=== PATIENT | male | born 1930 | race Caucasian/White ===

== ENCOUNTER 2019-03-18 15:00 | Observation (INO) | payer MEDICARE, BC ==
[2019-03-18] MEDS ORDERED: Acetaminophen 325 MG Tab PO PRN (16:13)
[2019-03-18] MEDS ORDERED: Sodium Chloride 0.9% 10 ML Syringe FLUSH PRN (16:13)
[2019-03-18] MEDS: traMADol 50 MG Tab PO PRN ×2 (16:51→20:50)
[2019-03-18 16:56] LABS: CHLORIDE,CL 89 mEq/L (98-106); SODIUM,NA 125 mEq/L (136-145)
[2019-03-18] MEDS ORDERED: diphenhydrAMINE 25 MG Cap PO PRN (17:11)
[2019-03-18] MEDS ORDERED: Docusate Sodium 100 MG Cap PO PRN (17:11)
[2019-03-18] MEDS ORDERED: Magnesium Hydroxide 400 MG/5 ML Susp 30 ML Cup PO PRN (17:11)
--- NOTE | 2019-03-18 17:22 | EDM.PDOC ---
ED HPI GENERAL MEDICAL PROBLEM - General Chief Complaint: General Stated Complaint: FELL IN SHOWER LAST NIGHT Time Seen by Provider: 03/18/19 15:37 Source of Information: Reports: Patient, Family History Limitations: Reports: No Limitations - History of Present Illness INITIAL COMMENTS - FREE TEXT/NARRATIVE: Hany is an 88 year old male who presents to the ED via private vehicle with his after a fall at home last night. He states that he was walking out of his shower and slipped, falling back. When pt was falling he grabbed onto the shower curtain which then came down on him. Pt hit his chest on the shower curtain wesly and back on the shower stall. His states she witnessed the fall and didn't have any LOC or head involvement. States he does have a bruise to the left posterior chest area and he is sore today with movement. Worse with changing positions. Location: Reports: Chest, Back Left Lower Posterior Chest Pain Score (Numeric/FACES): 6 - Related Data Allergies Allergy/AdvReac Type Severity Reaction Status Date / Time meclofenamate sodium Allergy Cannot Verified 03/18/19 15:19 [From Meclomen] Remember propoxyphene HCl Allergy Cannot Verified 03/18/19 15:19 [From Darvon] Remember valsartan [From Diovan] Allergy Shortness Verified 03/18/19 15:19 of Breath ciprofloxacin AdvReac Nausea and Verified 03/18/19 15:19 Vomiting codeine AdvReac Confusion Verified 03/18/19 15:19 erythromycin base AdvReac Dizziness Verified 03/18/19 15:19 [Erythromycin Base] hydrocodone AdvReac Confusion Verified 03/18/19 15:19 hylan G-F 20 [From Synvisc] AdvReac Muscle Verified 03/18/19 15:19 Aches morphine AdvReac Confusion Verified 03/18/19 15:19 Home Meds: Home Meds Acetaminophen [Tylenol Extra Strength] 500 mg PO ASDIRECTED PRN 11/24/13 [ History] Cholecalciferol (Vitamin D3) [Vitamin D3] 2,000 unit PO DAILY 11/24/13 [History] Docusate Sodium [Colace] 100 mg PO DAILY PRN 11/24/13 [History] Folic Acid 1 mg PO DAILY 11/24/13 [History] Lisinopril 10 mg PO DAILY 11/24/13 [History] Lovastatin 40 mg PO DAILY 11/24/13 [History] Magnesium 250 mg PO DAILY 11/24/13 [History] Magnesium Hydroxide [Milk of Magnesia] 30 ml PO DAILY PRN 11/24/13 [History] Methyldopa 125 mg PO BID 11/24/13 [History] Metoprolol Tartrate 100 mg PO BID 11/24/13 [History] Nitrofurantoin Monohyd/M-Cryst [Macrobid 100 mg Capsule] 100 mg PO BID 11/24/13 [History] Polyethylene Glycol 3350 [MiraLAX] 17 gm PO DAILY 11/24/13 [History] Timolol Maleate [Timoptic 0.5% Ocudose] 1 drop EYEBOTH DAILY 11/24/13 [History] Vitamin E 400 unit PO DAILY 11/24/13 [History] diphenhydrAMINE [Benadryl] 25 mg PO QID PRN 11/24/13 [History] hydrALAZINE HCl [Hydralazine HCl] 50 mg PO TID 11/24/13 [History] hydroCHLOROthiazide [Hydrochlorothiazide] 12.5 mg PO DAILY 11/24/13 [History] Aspirin [Halfprin] 81 mg PO DAILY 09/13/16 [History] Cyanocobalamin (Vitamin B-12) [Vitamin B-12] 2 ml IM ASDIRECTED 10/19/16 [ History] Multivitamin [Multivitamins] 1 tab PO DAILY 10/19/16 [History] cloNIDine [Catapres] 0.2 mg PO BID 10/19/16 [History] Allopurinol [Zyloprim] 100 mg PO DAILY 03/18/19 [History] Insulin Glarg,Human.Rec.Analog [Lantus] 10 unit SUBCUT DAILY 03/18/19 [History] cefUROXime axetil [Cefuroxime] 500 mg PO BID 03/18/19 [History] Past Medical History HEENT History: Reports: Hard of Hearing Cardiovascular History: Reports: High Cholesterol, Hypertension, Pacemaker Respiratory History: Reports: SOB Genitourinary History: Reports: UTI, Recurrent, Other (See Below) Musculoskeletal History: Reports: Arthritis, Gout Endocrine/Metabolic History: Reports: Diabetes, Type II Hematologic History: Reports: Anemia, B12 Deficiency, Other (See Below) Other Hematologic History: vitamin D deficiency - Past Surgical History Male Surgical History: Reports: Suprapubic Catheter Placement Social & Family History - Family History Family Medical History: Noncontributory - Tobacco Use Smoking Status *Q: Never Smoker Second Hand Smoke Exposure: No - Living Situation & Occupation Living situation: Reports: , with Spouse Occupation: Retired ED ROS GENERAL - Review of Systems Review Of Systems: See Below Constitutional: Reports: No Symptoms HEENT: Reports: No Symptoms Respiratory: Reports: Pleuritic Chest Pain. Denies: Shortness of Breath, Cough Cardiovascular: Reports: No Symptoms Musculoskeletal: Reports: Other (rib pain) Skin: Reports: Bruising Neurological: Reports: No Symptoms Psychiatric: Reports: No Symptoms ED EXAM, GENERAL - Physical Exam Exam: See Below Exam Limited By: No Limitations General Appearance: Alert, WD/WN, No Apparent Distress Eye Exam: Bilateral Eye: EOMI, PERRL Ears: Normal Canal, Normal TMs, Hearing Loss Ear Exam: Bilateral Ear: Auricle Normal Nose: Normal Inspection, Normal Mucosa, No Blood Throat/Mouth: Normal Inspection, Normal Lips, Normal Oropharynx, Normal Voice, No Airway Compromise Head: Atraumatic, Normocephalic Neck: Normal Inspection, Supple, Non-Tender, Full Range of Motion. No: Tender Lateral, Tender Midline Respiratory/Chest: No Respiratory Distress, Lungs Clear, Normal Breath Sounds, No Accessory Muscle Use, Other (tenderness with palpation to left posterior ribs ). No: Rhonchi, Wheezing Cardiovascular: Regular Rate, Rhythm, No Murmur GI/Abdominal: Normal Bowel Sounds, Soft, Non-Tender, No Organomegaly, No Abnormal Bruit, Pelvis Stable, Other (obese) Back Exam: No: Muscle Spasm, Paraspinal Tenderness, Vertebral Tenderness Extremities: Normal Inspection, Non-Tender, No Pedal Edema Neurological: Alert, Oriented, Normal Cognition, No Motor/Sensory Deficits Psychiatric: Normal Affect, Normal Mood Skin Exam: Warm, Dry, Ecchymosis (anterior chest wall and left posterior rib cage) Course - Vital Signs Last Recorded V/S: Last Vital Signs Temp 98.2 F 03/18/19 16:13 Pulse 62 03/18/19 16:13 Resp 18 03/18/19 16:13 BP 184/71 H 03/18/19 16:13 Pulse Ox 99 03/18/19 16:13 - Orders/Labs/Meds Orders: Active Orders 24 hr Category Date Time Status Ribs 2V w Chest Lt [CR] Routine Exams 03/18/19 15:22 Taken Medication Orders Acetaminophen (Tylenol) 650 mg PO Q4H PRN PRN Reason: Pain (Mild 1-3)/fever Allopurinol (Zyloprim) 100 mg PO DAILY [facility] Aspirin (Halfprin) 81 mg PO DAILY [facility] Clonidine HCl (Catapres) 0.2 mg PO BID [facility] Docusate Sodium (Colace) 100 mg PO DAILY PRN PRN Reason: Constipation Enoxaparin Sodium (Lovenox) 40 mg SUBCUT Q24H [facility] Folic Acid (Folic Acid) 1 mg PO DAILY [facility] Hydrochlorothiazide (Hydrochlorothiazide) 12.5 mg PO DAILY [facility] Sodium Chloride (Normal Saline) 1,000 mls @ 75 mls/hr IV ASDIRECTED [facility] Lisinopril (Prinivil) 10 mg PO DAILY [facility] Magnesium Hydroxide (Milk Of Magnesia) 30 ml PO DAILY PRN PRN Reason: Constipation Methyldopa (Methyldopa) 125 mg PO BID [facility] Nitrofurantoin Macrocrystals (Macrobid) 100 mg PO BID [facility] Non-Formulary Medication (Diphenhydramine [Benadryl]) 25 mg PO QID PRN PRN Reason: Allergies Non-Formulary Medication (Metoprolol Tartrate) 100 mg PO BID [facility] Non-Formulary Medication (Hydralazine Hcl [Hydralazine Hcl]) 50 mg PO TID [facility] Non-Formulary Medication (Cefuroxime Axetil [Cefuroxime]) 500 mg PO BID [facility] Non-Formulary Medication (Timolol Maleate [Timoptic 0.5% Ocudose]) 1 drop EYEBOTH DAILY [facility] Non-Formulary Medication (Magnesium [Magnesium]) 250 mg PO DAILY [facility] Non-Formulary Medication (Lovastatin [Lovastatin]) 40 mg PO DAILY [facility] Non-Formulary Medication (Insulin Glarg,Human.Rec.Analog [Lantus]) 10 unit SUBCUT DAILY [facility] Polyethylene Glycol (Miralax) 17 gm PO DAILY [facility] Sodium Chloride (Saline Flush) 10 ml FLUSH ASDIRECTED PRN PRN Reason: Keep Vein Open Tramadol HCl (Ultram) 50 mg PO Q4H PRN PRN Reason: pain Last Admin: 03/18/19 16:51 Dose: 50 mg Meds: Medications Generic Name Dose Route Start Last Admin Trade Name Freq PRN Reason Stop Dose Admin Acetaminophen 650 mg 03/18/19 16:13 Tylenol PO Q4H PRN Pain (Mild 1-3)/fever Allopurinol 100 mg 03/19/19 08:00 Zyloprim PO DAILY [facility] Aspirin 81 mg 03/19/19 08:00 Halfprin PO DAILY [facility] Clonidine HCl 0.2 mg 03/18/19 20:00 Catapres PO BID [facility] Docusate Sodium 100 mg 03/18/19 17:11 Colace PO DAILY PRN Constipation Enoxaparin Sodium 40 mg 03/18/19 16:13 Lovenox SUBCUT Q24H [facility] Folic Acid 1 mg 03/19/19 08:00 Folic Acid PO DAILY [facility] Hydrochlorothiazide 12.5 mg 03/19/19 08:00 Hydrochlorothiazide PO DAILY [facility] Sodium Chloride 1,000 mls @ 75 mls/hr 03/18/19 17:30 Normal Saline IV ASDIRECTED [facility] Lisinopril 10 mg 03/19/19 08:00 Prinivil PO DAILY [facility] Magnesium Hydroxide 30 ml 03/18/19 17:11 Milk Of Magnesia PO DAILY PRN Constipation Methyldopa 125 mg 03/18/19 20:00 Methyldopa PO BID [facility] Nitrofurantoin Macrocrystals 100 mg 03/18/19 20:00 Macrobid PO BID [facility] Non-Formulary Medication 25 mg 03/18/19 17:11 Diphenhydramine [Benadryl] PO QID PRN Allergies Non-Formulary Medication 100 mg 03/18/19 20:00 Metoprolol Tartrate PO BID [facility] Non-Formulary Medication 50 mg 03/18/19 20:00 Hydralazine Hcl [Hydralazine Hcl] PO TID [facility] Non-Formulary Medication 500 mg 03/18/19 20:00 Cefuroxime Axetil [Cefuroxime] PO BID [facility] Non-Formulary Medication 1 drop 03/19/19 08:00 Timolol Maleate [Timoptic 0.5% Ocudose] EYEBOTH DAILY [facility] Non-Formulary Medication 250 mg 03/19/19 08:00 Magnesium [Magnesium] PO DAILY [facility] Non-Formulary Medication 40 mg 03/19/19 08:00 Lovastatin [Lovastatin] PO DAILY [facility] Non-Formulary Medication 10 unit 03/19/19 08:00 Insulin Glarg,Human.Rec.Analog [Lantus] SUBCUT DAILY [facility] Polyethylene Glycol 17 gm 03/19/19 08:00 Miralax PO DAILY [facility] Sodium Chloride 10 ml 03/18/19 16:13 Saline Flush FLUSH ASDIRECTED PRN Keep Vein Open Tramadol HCl 50 mg 03/18/19 16:13 03/18/19 16:51 Ultram PO 50 mg Q4H PRN Administration pain Departure - Departure Time of Disposition: 17:23 Disposition: Refer to Observation Clinical Impression: Ribs, multiple fractures Qualifiers: Encounter type: initial encounter Fracture type: closed Laterality: left Qualified Code(s): S22.42XA - Multiple fractures of ribs, left side, initial encounter for closed fracture - Discharge Information - Problem List & Annotations (1) Ribs, multiple fractures SNOMED Code(s): 6002950 Code(s): S22.49XA - MULTIPLE FRACTURES OF RIBS, UNSP SIDE, INIT FOR CLOS FX Status: Acute Current Visit: Yes Qualifiers: Encounter type: initial encounter Fracture type: closed Laterality: left Qualified Code(s): S22.42XA - Multiple fractures of ribs, left side, initial encounter for closed fracture - My Orders Last 24 Hours: My Active Orders 03/18/19 15:22 Ribs 2V w Chest Lt [CR] Routine - Assessment/Plan Admission H&P: Please use this note as an admission H&P Last 24 Hours: My Active Orders 03/18/19 15:22 Ribs 2V w Chest Lt [CR] Routine Plan: X-ray reviewed and nondisplaced fractures 7-9 to the left posterior ribs. Will admit for pain control as he doesn't tolerate narcotics with history of confusion. Will try Tramadol as it doesn't appear he has any discomfort. is concerned of risks for falls and will have him ambulate with assistance. Spirometry ordered. Dr. Dan alerted on admission.
[2019-03-18] MEDS: Enoxaparin 40 MG/0.4 ML Syringe SUBCUT SCH (17:36)
[2019-03-18] MEDS: MACROCRYSTALLINE PO SCH (19:54)
[2019-03-18] MEDS: Cefuroxime 250 MG Tab PO SCH (19:54)
[2019-03-18] MEDS: NITROFURANTOIN MONOHYDRATE PO SCH (19:54)
[2019-03-18] MEDS: CLONIDINE 0.1 MG PO SCH (19:56)
[2019-03-18] MEDS: hydrALAZINE 25 MG Tab PO SCH (19:56)
[2019-03-18] MEDS: Metoprolol Tartrate 50 MG Tab PO SCH (19:56)
[2019-03-18] MEDS: Sodium Chloride 0.9% 1,000 ML IV SCH (20:00)
[2019-03-19] MEDS: traMADol 50 MG Tab PO PRN ×3 (01:29→20:37)
[2019-03-19 07:24] LABS: CHLORIDE,CL 89 mEq/L (98-106)
[2019-03-19 07:39] LABS: SODIUM,NA 123 mEq/L (136-145)
[2019-03-19] MEDS ORDERED: Simvastatin 20 MG Tab PO SCH (08:00)
[2019-03-19] MEDS ORDERED: HYDROCHLOROTHIAZIDE PO SCH (08:00)
[2019-03-19] MEDS ORDERED: Hydrochlorothiazide 25 MG Tab PO SCH (08:00)
[2019-03-19] MEDS ORDERED: Insulin Glargine,Human Rec. Analog 100 Units/ML 3 ML Pen SUBCUT SCH ×2 (08:00→20:00)
[2019-03-19] MEDS ORDERED: Lisinopril 5 MG Tab PO SCH (08:00)
[2019-03-19] MEDS ORDERED: METHYLDOPA PO SCH (08:00)
[2019-03-19] MEDS: FOLIC ACID 1 MG PO SCH (09:02)
[2019-03-19] MEDS: HYDRALAZINE 50 MG PO SCH ×3 (09:02→19:58)
[2019-03-19] MEDS: Cefuroxime 250 MG Tab PO SCH ×2 (09:02→20:01)
[2019-03-19] MEDS: Aspirin 81 MG Tab.EC PO SCH (09:02)
[2019-03-19] MEDS: CLONIDINE 0.1 MG PO SCH ×2 (09:02→19:56)
[2019-03-19] MEDS: LOVASTATIN 40 MG PO SCH (09:03)
[2019-03-19] MEDS: LISINOPRIL 10 MG PO SCH (09:03)
[2019-03-19] MEDS: MACROCRYSTALLINE PO SCH ×2 (09:03→19:55)
[2019-03-19] MEDS: Timolol Maleate 0.5% Ophth Soln 5 ML Bottle EYEBOTH SCH (09:03)
[2019-03-19] MEDS: NITROFURANTOIN MONOHYDRATE PO SCH ×2 (09:03→19:55)
[2019-03-19] MEDS: METOPROLOL TARTRATE 100 MG PO SCH ×2 (09:03→19:57)
[2019-03-19] MEDS: hydrALAZINE 25 MG Tab PO SCH (09:04)
[2019-03-19] MEDS: Metoprolol Tartrate 50 MG Tab PO SCH (09:04)
[2019-03-19] MEDS: Sodium Chloride 0.9% 1,000 ML IV SCH (09:06)
[2019-03-19] MEDS: Polyethylene Glycol 3350 Powder 17 GM Packet PO SCH (09:35)
--- NOTE | 2019-03-19 12:55 | PCM.PN ---
- General Info Date of Service: 03/19/19 Admission Dx/Problem (Free Text): Rib fractures Functional Status: Reports: Pain Controlled (pain is tolerable with use of Tramadol, does admit he has pain with coughing or sneezing), Tolerating Diet, Ambulating - Review of Systems General: Denies: Weakness, Fatigue HEENT: Reports: No Symptoms Pulmonary: Reports: Pleuritic Chest Pain. Denies: Shortness of Breath, Cough Cardiovascular: Denies: Chest Pain, Edema, Lightheadedness Gastrointestinal: Denies: Abdominal Pain, Nausea, Vomiting Genitourinary: Reports: No Symptoms Musculoskeletal: Reports: Back Pain Skin: Reports: Bruising Neurological: Reports: Difficulty Walking (patient states his balance has been off for the last month or so. has fallen x2), Weakness Psychiatric: Reports: No Symptoms - Patient Data Vitals - Most Recent: Last Vital Signs Temp 96.5 F 03/19/19 08:00 Pulse 62 03/19/19 08:00 Resp 18 03/19/19 08:00 BP 142/66 H 03/19/19 09:02 Pulse Ox 95 03/19/19 08:00 Weight - Most Recent: 219 lb I&O - Last 24 Hours: Intake & Output 03/18/19 03/19/19 03/19/19 22:59 06:59 14:59 Intake Total 983 Output Total 1325 Balance -1325 983 Lab Results Last 24 Hours: Laboratory Results - last 24 hr 03/18/19 03/18/19 03/18/19 Range/Units 16:40 16:40 20:51 WBC 10.0 (5.0-10.0) 10^3/uL RBC 3.26 L (4.50-6.00) 10^6/uL Hgb 11.8 L (14.0-18.0) g/dL Hct 32.4 L (40.0-54.0) % MCV 99.4 H (82.0-94.0) fL MCH 36.2 H (27.0-32.0) pg MCHC 36.4 (33.0-38.0) g/dL RDW Coeff of [place] 10.8 L (11.0-15.0) % Plt Count 174 (150-400) 10^3/uL Neut % (Auto) 78.7 (35-85) % Lymph % (Auto) 9.7 L (10-55) % [place] % (Auto) 10.0 (0-16) % Eos % (Auto) 1.5 (0-5) % Baso % (Auto) 0.1 (0-3) % Neut # (Auto) 7.88 H (1.80-7.00) 10^3/uL Lymph # (Auto) 0.97 L (1.00-4.80) 10^3/uL [place] # (Auto) 1.00 H (0.00-0.80) 10^3/uL Eos # (Auto) 0.15 (0.00-0.45) 10^3/uL Baso # (Auto) 0.01 10^3/uL Sodium 125 L (136-145) mEq/L Potassium 4.5 (3.5-5.0) mEq/L Chloride 89 L (98-106) mEq/L Carbon Dioxide 28 (21-32) mmol/L BUN 19 H (7-18) mg/dL Creatinine 1.1 (0.7-1.3) mg/dL Est Cr Clr Drug Dosing 40.38 mL/min Estimated GFR (MDRD) > 60 (>=60) mL/min Glucose 141 H (75-99) mg/dL POC Glucose 201 H (75-105) mg/dl Calcium 9.0 (8.4-10.1) mg/dL Total Bilirubin 1.0 (0.0-1.0) mg/dL AST 21 (15-37) U/L ALT 22 (12-78) U/L Alkaline Phosphatase 88 (46-116) U/L Total Protein 7.1 (6.4-8.2) g/dL Albumin 3.8 (3.4-5.0) g/dL 03/19/19 03/19/19 Range/Units 07:00 12:04 WBC (5.0-10.0) 10^3/uL RBC (4.50-6.00) 10^6/uL Hgb (14.0-18.0) g/dL Hct (40.0-54.0) % MCV (82.0-94.0) fL MCH (27.0-32.0) pg MCHC (33.0-38.0) g/dL RDW Coeff of [place] (11.0-15.0) % Plt Count (150-400) 10^3/uL Neut % (Auto) (35-85) % Lymph % (Auto) (10-55) % [place] % (Auto) (0-16) % Eos % (Auto) (0-5) % Baso % (Auto) (0-3) % Neut # (Auto) (1.80-7.00) 10^3/uL Lymph # (Auto) (1.00-4.80) 10^3/uL [place] # (Auto) (0.00-0.80) 10^3/uL Eos # (Auto) (0.00-0.45) 10^3/uL Baso # (Auto) 10^3/uL Sodium 123 L* (136-145) mEq/L Potassium 4.1 (3.5-5.0) mEq/L Chloride 89 L (98-106) mEq/L Carbon Dioxide 27 (21-32) mmol/L BUN 22 H (7-18) mg/dL Creatinine 0.9 (0.7-1.3) mg/dL Est Cr Clr Drug Dosing 49.35 mL/min Estimated GFR (MDRD) > 60 (>=60) mL/min Glucose 139 H (75-99) mg/dL POC Glucose 135 H (75-105) mg/dl Calcium 8.7 (8.4-10.1) mg/dL Total Bilirubin (0.0-1.0) mg/dL AST (15-37) U/L ALT (12-78) U/L Alkaline Phosphatase (46-116) U/L Total Protein (6.4-8.2) g/dL Albumin (3.4-5.0) g/dL Med Orders - Current: Current Medications Acetaminophen (Tylenol) 650 mg PO Q4H PRN PRN Reason: Pain (Mild 1-3)/fever Allopurinol (Zyloprim) 100 mg PO DAILY [facility] Last Admin: 03/19/19 09:04 Dose: 100 mg Aspirin (Halfprin) 81 mg PO DAILY [facility] Last Admin: 03/19/19 09:02 Dose: 81 mg Cefuroxime Axetil (Ceftin) 500 mg PO BID [facility] Last Admin: 03/19/19 09:02 Dose: 500 mg Clonidine HCl (Catapres) 0.2 mg PO BID [facility] Last Admin: 03/19/19 09:02 Dose: 0.2 mg Diphenhydramine HCl (Benadryl) 25 mg PO QID PRN PRN Reason: Allergies Last Admin: 03/18/19 23:29 Dose: 25 mg Docusate Sodium (Colace) 100 mg PO DAILY PRN PRN Reason: Constipation Enoxaparin Sodium (Lovenox) 40 mg SUBCUT Q24H [facility] Last Admin: 03/18/19 17:36 Dose: 40 mg Folic Acid (Folic Acid) 1 mg PO DAILY [facility] Last Admin: 03/19/19 09:02 Dose: 1 mg Sodium Chloride (Normal Saline) 1,000 mls @ 75 mls/hr IV ASDIRECTED [facility] Last Admin: 03/19/19 09:06 Dose: 75 mls/hr Insulin Glargine (Lantus Solostar) 10 units SUBCUT BEDTIME [facility] Magnesium Hydroxide (Milk Of Magnesia) 30 ml PO DAILY PRN PRN Reason: Constipation Magnesium Oxide (Magnesium Oxide) 250 mg PO DAILY [facility] Last Admin: 03/19/19 09:35 Dose: 250 mg Methyldopa (Methyldopa) 250 mg PO BID [facility] Nitrofurantoin Macrocrystals (Macrobid) 100 mg PO BID [facility] Last Admin: 03/19/19 09:03 Dose: 100 mg Ptom Hydralazine (50mg Tab) 50 mg PO TID [facility] Last Admin: 03/19/19 09:02 Dose: 50 mg Ptom Lisinopril (10mg Tab) 10 mg PO DAILY [facility] Last Admin: 03/19/19 09:03 Dose: 10 mg Ptom Lovastatin (40 Mg Tab) 40 mg PO DAILY [facility] Last Admin: 03/19/19 09:03 Dose: 40 mg Ptom Metoprolol (Tartrate 100mg Tab) 100 mg PO BID [facility] Last Admin: 03/19/19 09:03 Dose: 100 mg Polyethylene Glycol (Miralax) 17 gm PO DAILY [facility] Last Admin: 03/19/19 09:35 Dose: 17 gm Sodium Chloride (Saline Flush) 10 ml FLUSH ASDIRECTED PRN PRN Reason: Keep Vein Open Timolol Maleate (Timoptic 0.5% Ophth Soln) 0 ml EYEBOTH DAILY [facility] Last Admin: 03/19/19 09:03 Dose: 1 drop Tramadol HCl (Ultram) 50 mg PO Q4H PRN PRN Reason: pain Last Admin: 03/19/19 09:07 Dose: 50 mg Discontinued Medications Hydralazine HCl (Apresoline) 50 mg PO TID [facility] Last Admin: 03/19/19 09:04 Dose: Not Given Hydrochlorothiazide (Hydrochlorothiazide) 12.5 mg PO DAILY [facility] Last Admin: 03/19/19 09:04 Dose: Not Given Insulin Glargine (Lantus Solostar) 10 units SUBCUT DAILY [facility] Last Admin: 03/19/19 10:08 Dose: Not Given Lisinopril (Prinivil) 10 mg PO DAILY [facility] Last Admin: 03/19/19 09:05 Dose: Not Given Methyldopa (Methyldopa) 125 mg PO BID [facility] Last Admin: 03/19/19 09:04 Dose: Not Given Metoprolol Tartrate (Lopressor) 100 mg PO BID [facility] Last Admin: 03/19/19 09:04 Dose: Not Given Methyldopa/Hctz 250/ (25mg Tab) 0.5 tab PO BID [facility] Last Admin: 03/19/19 09:03 Dose: 0.5 tab Simvastatin (Zocor) 20 mg PO DAILY [facility] Last Admin: 03/19/19 09:05 Dose: Not Given - Exam General: Alert, Oriented HEENT: Mucous Membr. Moist/[place] Neck: Supple Lungs: Clear to Auscultation, Normal Respiratory Effort Cardiovascular: Regular Rate, Regular Rhythm GI/Abdominal Exam: Normal Bowel Sounds, Soft, Non-Tender Back Exam: Other (is tender with exam to left lateral back and axilla) Extremities: Normal Inspection, No Pedal Edema Skin: Warm, Dry, Ecchymosis Neurological: No New Focal Deficit - Problem List & Annotations (1) Hyponatremia SNOMED Code(s): 75851608 Code(s): E87.1 - HYPO-OSMOLALITY AND HYPONATREMIA Status: Acute Priority : High Current Visit: Yes (2) Ribs, multiple fractures SNOMED Code(s): 2124107 Code(s): S22.49XA - MULTIPLE FRACTURES OF RIBS, UNSP SIDE, INIT FOR CLOS FX Status: Acute Priority: High Current Visit: Yes Qualifiers: Encounter type: initial encounter Fracture type: closed Laterality: left Qualified Code(s): S22.42XA - Multiple fractures of ribs, left side, initial encounter for closed fracture - Problem List Review Problem List Initiated/Reviewed/Updated: Yes - My Orders Last 24 Hours: My Active Orders 03/19/19 20:00 Methyldopa 250 mg PO BID 03/20/19 05:11 BASIC METABOLIC PANEL,BMP [CHEM] AM - Assessment Assessment:: Multiple rib fractures hyponatremia - Plan Plan:: Patient feels he is doing better today. States is tolerating the pain fairly well with Tramadol. Patient and express concerns with any stronger pain meds as he has gotten very confused from them in the past. Is ambulating to the bathroom and tolerating. Labs indicate today that sodium is lower at 123. Historically, patient does have issues with hyponatremia, typically ranges from 128-131. Meds reviewed. Is on HCTZ 25 mg total daily. Will continue with IV normal saline. Tramadol for pain. Stop HCTZ. Repeat BMP in am. Probable discharge home in am.
[2019-03-19] MEDS: Enoxaparin 40 MG/0.4 ML Syringe SUBCUT SCH (17:43)
[2019-03-20] MEDS: FOLIC ACID 1 MG PO SCH (07:58)
[2019-03-20] MEDS: LOVASTATIN 40 MG PO SCH (07:58)
[2019-03-20] MEDS: MACROCRYSTALLINE PO SCH (07:58)
[2019-03-20] MEDS: LISINOPRIL 10 MG PO SCH (07:58)
[2019-03-20] MEDS: NITROFURANTOIN MONOHYDRATE PO SCH (07:58)
[2019-03-20] MEDS: CLONIDINE 0.1 MG PO SCH (07:58)
[2019-03-20] MEDS: Cefuroxime 250 MG Tab PO SCH (07:59)
[2019-03-20] MEDS: METOPROLOL TARTRATE 100 MG PO SCH (07:59)
[2019-03-20] MEDS: HYDRALAZINE 50 MG PO SCH (07:59)
[2019-03-20] MEDS: Polyethylene Glycol 3350 Powder 17 GM Packet PO SCH (08:00)
[2019-03-20] MEDS: Aspirin 81 MG Tab.EC PO SCH (08:07)
[2019-03-20] MEDS: traMADol 50 MG Tab PO PRN (08:13)
[2019-03-20] MEDS: Timolol Maleate 0.5% Ophth Soln 5 ML Bottle EYEBOTH SCH (08:14)
[2019-03-20 08:23] LABS: CHLORIDE,CL 87 mEq/L (98-106)
[2019-03-20 08:27] LABS: SODIUM,NA 124 mEq/L (136-145)
[2019-03-20] MEDS ORDERED: Lisinopril 20 MG Tab PO SCH (08:30)
[2019-03-20] MEDS ORDERED: Lisinopril 10 MG Tab PO ONE (08:34)
[2019-03-20 12:12] VITALS: BP 180/59; PULSE 61
--- NOTE | 2019-03-20 19:25 | PCM.DCSUM1 ---
Discharge Summary - Hospital Course Free Text/Narrative:: Patient presented to ER with complaints of left chest wall pain after a fall. States was getting out of shower and slipped and fell. Grabbed on to the shower curtain but fell, landing on his left side. He complained of pain with movement and deep inspiration. Xrays did show posterior rib fractures. Labs noted sodium level of 125. Admitted and started on IV Normal saline. Started on Tramadol as has had increased confusion related to narcotics. Diagnosis: Stroke: No Modified Adair Scale: No Symptoms at All Modified Adair Scale Score: 0 - Discharge Data Discharge Date: 03/20/19 Discharge Disposition: Home, Self-Care 01 Condition: Fair - Discharge Diagnosis/Problem(s) (1) Hyponatremia SNOMED Code(s): 64405309 ICD Code: E87.1 - HYPO-OSMOLALITY AND HYPONATREMIA Status: Acute Priority : High (2) Ribs, multiple fractures SNOMED Code(s): 1257167 ICD Code: S22.49XA - MULTIPLE FRACTURES OF RIBS, UNSP SIDE, INIT FOR CLOS FX Status: Acute Priority: High Qualifiers: Encounter type: initial encounter Fracture type: closed Laterality: left Qualified Code(s): S22.42XA - Multiple fractures of ribs, left side, initial encounter for closed fracture - Patient Summary/Data Complications: none Hospital Course: Patient stable. Still experiencing pain in the left chest wall with movement and deep breaths. He is tolerating Tramadol well. Did have some confusion last evening but admits that routinely happens at home. Is ambulating with walker and stand by assist. Using incentive spirometer. Sodium level actually dropped yesterday to 123 despite fluids, HCTZ was stopped. As a result of shortage, unable to obtain plain methyldopa so did not receive med last evening. This am, blood pressure is high. Did increase Lisinopril to 20 mg. Will have patient continue to hold methyldopa and HCTZ until upcoming appointment with Lisa and have labs redrawn and blood pressure rechecked at that time. aware, pharmacy notified of med changes. - Patient Instructions Diet: Usual Diet as Tolerated Activity: As Tolerated - Discharge Plan *PRESCRIPTION DRUG MONITORING PROGRAM REVIEWED*: No *COPY OF PRESCRIPTION DRUG MONITORING REPORT IN PATIENT PABLITO: No Prescriptions/Med Rec: Lisinopril [Prinivil] 20 mg PO DAILY #30 tablet traMADol [Ultram] 50 mg PO Q4H PRN #60 tablet PRN Reason: pain Home Medications: Home Meds Acetaminophen [Tylenol Extra Strength] 500 mg PO ASDIRECTED PRN 11/24/13 [ History] Cholecalciferol (Vitamin D3) [Vitamin D3] 2,000 unit PO DAILY 11/24/13 [History] Docusate Sodium [Colace] 100 mg PO DAILY PRN 11/24/13 [History] Folic Acid 1 mg PO DAILY 11/24/13 [History] Lovastatin 40 mg PO DAILY 11/24/13 [History] Magnesium 250 mg PO DAILY 11/24/13 [History] Magnesium Hydroxide [Milk of Magnesia] 30 ml PO DAILY PRN 11/24/13 [History] Metoprolol Tartrate 100 mg PO BID 11/24/13 [History] Nitrofurantoin Monohyd/M-Cryst [Macrobid 100 mg Capsule] 100 mg PO BID 11/24/13 [History] Polyethylene Glycol 3350 [MiraLAX] 17 gm PO DAILY 11/24/13 [History] Timolol Maleate [Timoptic 0.5% Ocudose] 1 drop EYEBOTH DAILY 11/24/13 [History] Vitamin E 400 unit PO DAILY 11/24/13 [History] diphenhydrAMINE [Benadryl] 25 mg PO QID PRN 11/24/13 [History] hydrALAZINE HCl [Hydralazine HCl] 50 mg PO TID 11/24/13 [History] Aspirin [Halfprin] 81 mg PO DAILY 09/13/16 [History] Cyanocobalamin (Vitamin B-12) [Vitamin B-12] 2 ml IM ASDIRECTED 10/19/16 [ History] Multivitamin [Multivitamins] 1 tab PO DAILY 10/19/16 [History] cloNIDine [Catapres] 0.2 mg PO BID 10/19/16 [History] Allopurinol [Zyloprim] 100 mg PO DAILY 03/18/19 [History] Insulin Glarg,Human.Rec.Analog [Lantus] 10 unit SUBCUT DAILY 03/18/19 [History] cefUROXime axetil [Cefuroxime] 500 mg PO BID 03/18/19 [History] Lisinopril [Prinivil] 20 mg PO DAILY #30 tablet 03/20/19 [Rx] traMADol [Ultram] 50 mg PO Q4H PRN #60 tablet 03/20/19 [Rx] Forms: ED Department Discharge Referrals: Lisa Hernandez ENERGY CONSERVATION SPECIALIST [Primary Care Provider] - (Follow up with Lisa in 10 days in NR, panel 8 at that visit) - Discharge Summary/Plan Comment DC Time >30 min.: No - General Info Date of Service: 03/20/19 Admission Dx/Problem (Free Text: Rib fractures Functional Status: Reports: Pain Controlled, Tolerating Diet, Ambulating - Review of Systems General: Reports: Weakness. Denies: Fatigue, Malaise HEENT: Reports: No Symptoms Pulmonary: Reports: Pleuritic Chest Pain. Denies: Shortness of Breath, Cough Cardiovascular: Denies: Chest Pain, Edema, Lightheadedness Gastrointestinal: Denies: Abdominal Pain, Nausea, Vomiting Genitourinary: Reports: No Symptoms Musculoskeletal: Reports: Other (rib pain/back pain) Skin: Reports: Bruising (left posterior back/flank area) Neurological: Denies: Confusion (oriented this am) - Patient Data Vitals - Most Recent: Last Vital Signs Temp 97.6 F 03/20/19 11:50 Pulse 61 03/20/19 11:50 Resp 16 03/20/19 11:50 BP 180/59 H 03/20/19 11:50 Pulse Ox 98 03/20/19 11:50 Weight - Most Recent: 219 lb I&O - Last 24 hours: Intake & Output 03/20/19 03/20/19 03/20/19 06:59 14:59 22:59 Output Total 1125 Balance -1125 Lab Results - Last 24 hrs: Laboratory Results - last 24 hr 03/19/19 03/20/19 03/20/19 Range/Units 20:06 07:00 08:02 Sodium 124 L* (136-145) mEq/L Potassium 4.0 (3.5-5.0) mEq/L Chloride 87 L (98-106) mEq/L Carbon Dioxide 29 (21-32) mmol/L BUN 25 H (7-18) mg/dL Creatinine 0.9 (0.7-1.3) mg/dL Est Cr Clr Drug Dosing 49.35 mL/min Estimated GFR (MDRD) > 60 (>=60) mL/min Glucose 137 H (75-99) mg/dL POC Glucose 194 H 117 H (75-105) mg/dl Calcium 9.6 (8.4-10.1) mg/dL Med Orders - Current: Current Medications Discontinued Medications Acetaminophen (Tylenol) 650 mg PO Q4H PRN PRN Reason: Pain (Mild 1-3)/fever Last Admin: 03/19/19 13:43 Dose: 650 mg Allopurinol (Zyloprim) 100 mg PO DAILY [facility] Last Admin: 03/20/19 07:59 Dose: 100 mg Aspirin (Halfprin) 81 mg PO DAILY [facility] Last Admin: 03/20/19 08:07 Dose: 81 mg Cefuroxime Axetil (Ceftin) 500 mg PO BID [facility] Last Admin: 03/20/19 07:59 Dose: 500 mg Clonidine HCl (Catapres) 0.2 mg PO BID [facility] Last Admin: 03/20/19 07:58 Dose: 0.2 mg Diphenhydramine HCl (Benadryl) 25 mg PO QID PRN PRN Reason: Allergies Last Admin: 03/18/19 23:29 Dose: 25 mg Docusate Sodium (Colace) 100 mg PO DAILY PRN PRN Reason: Constipation Enoxaparin Sodium (Lovenox) 40 mg SUBCUT Q24H [facility] Last Admin: 03/19/19 17:43 Dose: 40 mg Folic Acid (Folic Acid) 1 mg PO DAILY [facility] Last Admin: 03/20/19 07:58 Dose: 1 mg Hydralazine HCl (Apresoline) 50 mg PO TID [facility] Last Admin: 03/19/19 09:04 Dose: Not Given Hydrochlorothiazide (Hydrochlorothiazide) 12.5 mg PO DAILY [facility] Last Admin: 03/19/19 09:04 Dose: Not Given Sodium Chloride (Normal Saline) 1,000 mls @ 75 mls/hr IV ASDIRECTED [facility] Last Admin: 03/19/19 09:06 Dose: 75 mls/hr Insulin Glargine (Lantus Solostar) 10 units SUBCUT DAILY [facility] Last Admin: 03/19/19 10:08 Dose: Not Given Insulin Glargine (Lantus Solostar) 10 units SUBCUT BEDTIME [facility] Last Admin: 03/19/19 20:08 Dose: 10 unit Lisinopril (Prinivil) 10 mg PO DAILY [facility] Last Admin: 03/19/19 09:05 Dose: Not Given Lisinopril (Prinivil) 20 mg PO DAILY [facility] Lisinopril (Prinivil) 20 mg PO DAILY [facility] Lisinopril (Prinivil) 10 mg PO ONETIME ONE Stop: 03/20/19 08:35 Last Admin: 03/20/19 10:31 Dose: 10 mg Magnesium Hydroxide (Milk Of Magnesia) 30 ml PO DAILY PRN PRN Reason: Constipation Magnesium Oxide (Magnesium Oxide) 250 mg PO DAILY [facility] Last Admin: 03/20/19 07:59 Dose: 250 mg Methyldopa (Methyldopa) 125 mg PO BID [facility] Last Admin: 03/19/19 09:04 Dose: Not Given Methyldopa (Methyldopa) 250 mg PO BID [facility] Last Admin: 03/20/19 08:04 Dose: Not Given Metoprolol Tartrate (Lopressor) 100 mg PO BID [facility] Last Admin: 03/19/19 09:04 Dose: Not Given Nitrofurantoin Macrocrystals (Macrobid) 100 mg PO BID [facility] Last Admin: 03/20/19 07:58 Dose: 100 mg Ptom Hydralazine (50mg Tab) 50 mg PO TID [facility] Last Admin: 03/20/19 07:59 Dose: 50 mg Ptom Lisinopril (10mg Tab) 10 mg PO DAILY [facility] Last Admin: 03/20/19 07:58 Dose: 10 mg Ptom Lovastatin (40 Mg Tab) 40 mg PO DAILY [facility] Last Admin: 03/20/19 07:58 Dose: 40 mg Methyldopa/Hctz 250/ (25mg Tab) 0.5 tab PO BID [facility] Last Admin: 03/19/19 09:03 Dose: 0.5 tab Ptom Metoprolol (Tartrate 100mg Tab) 100 mg PO BID [facility] Last Admin: 03/20/19 07:59 Dose: 100 mg Polyethylene Glycol (Miralax) 17 gm PO DAILY [facility] Last Admin: 03/20/19 08:00 Dose: Not Given Simvastatin (Zocor) 20 mg PO DAILY [facility] Last Admin: 03/19/19 09:05 Dose: Not Given Sodium Chloride (Saline Flush) 10 ml FLUSH ASDIRECTED PRN PRN Reason: Keep Vein Open Timolol Maleate (Timoptic 0.5% Ophth Soln) 0 ml EYEBOTH DAILY [facility] Last Admin: 03/20/19 08:14 Dose: 1 drop Tramadol HCl (Ultram) 50 mg PO Q4H PRN PRN Reason: pain Last Admin: 03/20/19 08:13 Dose: 50 mg - Exam General: Reports: Alert, Oriented HEENT: Reports: Mucous Membr. Moist/[place] Neck: Reports: Supple Lungs: Reports: Clear to Auscultation, Normal Respiratory Effort Cardiovascular: Reports: Regular Rate, Regular Rhythm GI/Abdominal Exam: Normal Bowel Sounds, Soft, Non-Tender Extremities: Normal Inspection, No Pedal Edema Skin: Reports: Warm, Dry Neurological: Reports: No New Focal Deficit
[2019-03-21] MEDS ORDERED: Lisinopril 20 MG Tab PO SCH (08:00)
== END 2019-03-20 11:55 | disposition home or self-care (01) ==
LOC: CC.ED 15:00 → CC.MS 15:54 → UNDOADMOB 16:02 → CC.MS 16:02
PROVIDERS: ADMIT Physician Assistant Medical; ATTEND Family Medicine
DX: S22.42XA Multiple fractures of ribs, left side, initial encounter for closed fracture (principal); E87.1 Hypo-osmolality and hyponatremia; E78.00 Pure hypercholesterolemia, unspecified; I10 Essential (primary) hypertension; M19.90 Unspecified osteoarthritis, unspecified site; M10.9 Gout, unspecified; E11.9 Type 2 diabetes mellitus without complications; E55.9 Vitamin D deficiency, unspecified; D64.9 Anemia, unspecified; E53.8 Deficiency of other specified B group vitamins; E66.9 Obesity, unspecified; Z68.36 Body mass index [BMI] 36.0-36.9, adult; W01.0XXA Fall on same level from slipping, tripping and stumbling without subsequent striking against object, initial encounter; Y92.002 Bathroom of unspecified non-institutional (private) residence as the place of occurrence of the external cause; Z95.0 Presence of cardiac pacemaker; Z88.1 Allergy status to other antibiotic agents; Z88.5 Allergy status to narcotic agent; Z88.8 Allergy status to other drugs, medicaments and biological substances; Z79.4 Long term (current) use of insulin; Z79.82 Long term (current) use of aspirin; Z79.899 Other long term (current) drug therapy
CPT/HCPCS: 36415; 71101; 80048; 80053; 82962; 85025; 96360; 96361; 96372; 99284; A9270; G0378; J1650; J1815; J7030; 99217; 99219; 99225

== ENCOUNTER 2019-03-22 06:05 | Emergency (ER) | payer MEDICARE, BC ==
--- NOTE | 2019-03-22 06:42 | EDM.PDOC ---
ED HPI GENERAL MEDICAL PROBLEM - General Chief Complaint: General Stated Complaint: "sweaty and clammy" Time Seen by Provider: 03/22/19 06:20 Source of Information: Reports: Patient, EMS History Limitations: Reports: Other (hard of hearing) - History of Present Illness INITIAL COMMENTS - FREE TEXT/NARRATIVE: in with EMS s/p fall last week with fx ribs, was DC on 03/20/19. 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 Onset: Today Duration: Hour(s): Location: Reports: Abdomen Quality: Reports: Ache Severity: Moderate Improves with: Reports: None Worsens with: Reports: None Associated Symptoms: Reports: Weakness. Denies: Chest Pain, Cough, Fever/Chills , Nausea/Vomiting, Shortness of Breath Treatments BANKING REPRESENTATIVE: Reports: Other (see below) (none) - Related Data Allergies Allergy/AdvReac Type Severity Reaction Status Date / Time meclofenamate sodium Allergy Cannot Verified 03/18/19 15:19 [From Meclomen] Remember propoxyphene HCl Allergy Cannot Verified 03/18/19 15:19 [From Darvon] Remember valsartan [From Diovan] Allergy Shortness Verified 03/18/19 15:19 of Breath ciprofloxacin AdvReac Nausea and Verified 03/18/19 15:19 Vomiting codeine AdvReac Confusion Verified 03/18/19 15:19 erythromycin base AdvReac Dizziness Verified 03/18/19 15:19 [Erythromycin Base] hydrocodone AdvReac Confusion Verified 03/18/19 15:19 hylan G-F 20 [From Synvisc] AdvReac Muscle Verified 03/18/19 15:19 Aches morphine AdvReac Confusion Verified 03/18/19 15:19 Home Meds: Home Meds Acetaminophen [Tylenol Extra Strength] 500 mg PO ASDIRECTED PRN 11/24/13 [ History] Cholecalciferol (Vitamin D3) [Vitamin D3] 2,000 unit PO DAILY 11/24/13 [History] Docusate Sodium [Colace] 100 mg PO DAILY PRN 11/24/13 [History] Folic Acid 1 mg PO DAILY 11/24/13 [History] Lovastatin 40 mg PO DAILY 11/24/13 [History] Magnesium 250 mg PO DAILY 11/24/13 [History] Magnesium Hydroxide [Milk of Magnesia] 30 ml PO DAILY PRN 11/24/13 [History] Metoprolol Tartrate 100 mg PO BID 11/24/13 [History] Nitrofurantoin Monohyd/M-Cryst [Macrobid 100 mg Capsule] 100 mg PO BID 11/24/13 [History] Polyethylene Glycol 3350 [MiraLAX] 17 gm PO DAILY 11/24/13 [History] Timolol Maleate [Timoptic 0.5% Ocudose] 1 drop EYEBOTH DAILY 11/24/13 [History] Vitamin E 400 unit PO DAILY 11/24/13 [History] diphenhydrAMINE [Benadryl] 25 mg PO QID PRN 11/24/13 [History] hydrALAZINE HCl [Hydralazine HCl] 50 mg PO TID 11/24/13 [History] Aspirin [Halfprin] 81 mg PO DAILY 09/13/16 [History] Cyanocobalamin (Vitamin B-12) [Vitamin B-12] 2 ml IM ASDIRECTED 10/19/16 [ History] Multivitamin [Multivitamins] 1 tab PO DAILY 10/19/16 [History] cloNIDine [Catapres] 0.2 mg PO BID 10/19/16 [History] Allopurinol [Zyloprim] 100 mg PO DAILY 03/18/19 [History] Insulin Glarg,Human.Rec.Analog [Lantus] 10 unit SUBCUT DAILY 03/18/19 [History] cefUROXime axetil [Cefuroxime] 500 mg PO BID 03/18/19 [History] Lisinopril [Prinivil] 20 mg PO DAILY #30 tablet 03/20/19 [Rx] traMADol [Ultram] 50 mg PO Q4H PRN #60 tablet 03/20/19 [Rx] Past Medical History HEENT History: Reports: Hard of Hearing Cardiovascular History: Reports: High Cholesterol, Hypertension, Pacemaker Respiratory History: Reports: SOB Genitourinary History: Reports: UTI, Recurrent, Other (See Below) Musculoskeletal History: Reports: Arthritis, Gout Endocrine/Metabolic History: Reports: Diabetes, Type II Hematologic History: Reports: Anemia, B12 Deficiency, Other (See Below) Other Hematologic History: vitamin D deficiency - Past Surgical History Male Surgical History: Reports: Suprapubic Catheter Placement Social & Family History - Family History Family Medical History: Noncontributory - Tobacco Use Smoking Status *Q: Never Smoker - Living Situation & Occupation Living situation: Reports: , with Spouse Occupation: Retired ED ROS GENERAL - Review of Systems Review Of Systems: See Below Constitutional: Reports: Weakness, Other (diaphretic). Denies: Fever HEENT: Reports: No Symptoms Respiratory: Reports: No Symptoms. Denies: Shortness of Breath Cardiovascular: Reports: No Symptoms. Denies: Chest Pain Endocrine: Reports: No Symptoms GI/Abdominal: Reports: No Symptoms, Abdominal Pain. Denies: Black Stool, Bloody Stool, Diarrhea, Melena, Nausea, Vomiting : Reports: No Symptoms Musculoskeletal: Reports: Other (left chest wall pain) Skin: Reports: Bruising (left chest and abd wall) Neurological: Reports: No Symptoms. Denies: Headache Psychiatric: Reports: No Symptoms ED EXAM, GENERAL - Physical Exam Exam: See Below Exam Limited By: No Limitations General Appearance: Alert, WD/WN, No Apparent Distress, Obese Ears: Normal External Exam Nose: Normal Inspection Throat/Mouth: Normal Inspection, Normal Lips Head: Atraumatic, Normocephalic Neck: Normal Inspection, Supple, Non-Tender, Full Range of Motion Respiratory/Chest: No Respiratory Distress, Lungs Clear, Normal Breath Sounds, No Accessory Muscle Use. No: Chest Non-Tender (left chest wall tenderness) Cardiovascular: Normal Peripheral Pulses, Regular Rate, Rhythm Peripheral Pulses: 2+: Radial (L), Radial (R), Dorsalis Pedis (L), Dorsalis Pedis (R) GI/Abdominal: Soft, Distended. No: Tender (Male) Exam: Normal Inspection Rectal (Males) Exam: Normal Rectal Tone, Heme + Stool Back Exam: Normal Inspection, Full Range of Motion Extremities: Normal Inspection, Normal Range of Motion, Non-Tender, Normal Capillary Refill Neurological: Alert, Oriented, Normal Cognition, No Motor/Sensory Deficits Psychiatric: Normal Affect, Normal Mood Skin Exam: Warm, Dry, Intact, Normal Color, Ecchymosis (left chest wall and flank area) Course - Vital Signs Text/Narrative:: the pt was evaluated in the ED, cbc and general chem are essi neg, see pts base line levels, urine does show nitrate +, CT abd and pelvis with IV contrast was performed and read by the radiologist as essi neg, no acute findings other than increased gas in the colon, no obstruction. , there was a possible mass but was present from 2009, see the radiology report for details, the H/H is stable, the stool was brown but was positive for blood. the pt will be dc home will continue treatment plan, will need to f/u with pcp this week for further evaluation and treatment and suggest a colonoscopy. Last Recorded V/S: Last Vital Signs Temp 36.6 C 03/22/19 06:47 Pulse 75 03/22/19 06:47 Resp 16 03/22/19 06:47 BP 224/91 H 03/22/19 06:47 Pulse Ox 94 L 03/22/19 06:47 - Orders/Labs/Meds Orders: Active Orders 24 hr Category Date Time Status Cardiac Monitoring [RC] . DIRECTED Care 03/22/19 06:36 Active Abdomen Pelvis w Cont [CT] Stat Exams 03/22/19 06:33 Taken Chest 1V Frontal [CR] Stat Exams 03/22/19 06:28 Taken CULTURE URINE [RM] Stat Lab 03/22/19 06:36 Received OCCULT BLOOD SCREEN [OP] Stat Lab 03/22/19 06:28 Ordered Sodium Chloride 0.9% [Normal Saline] 1,000 ml Med 03/22/19 06:45 Active IV ASDIRECTED Medication Orders Sodium Chloride (Normal Saline) 1,000 mls @ 100 mls/hr IV ASDIRECTED SANDRA Last Admin: 03/22/19 06:52 Dose: 100 mls/hr Labs: Laboratory Tests 03/22/19 03/22/19 03/22/19 Range/Units 06:28 06:28 06:33 WBC 10.7 H (5.0-10.0) 10^3/uL RBC 2.91 L (4.50-6.00) 10^6/uL Hgb 10.5 L (14.0-18.0) g/dL Hct 29.0 L (40.0-54.0) % MCV 99.7 H (82.0-94.0) fL MCH 36.1 H (27.0-32.0) pg MCHC 36.2 (33.0-38.0) g/dL RDW Coeff of Darwin 11.0 (11.0-15.0) % Plt Count 191 (150-400) 10^3/uL Neut % (Auto) 70.3 (35-85) % Lymph % (Auto) 11.5 (10-55) % Sunflower % (Auto) 15.9 (0-16) % Eos % (Auto) 2.2 (0-5) % Baso % (Auto) 0.1 (0-3) % Neut # (Auto) 7.53 H (1.80-7.00) 10^3/uL Lymph # (Auto) 1.23 (1.00-4.80) 10^3/uL Sunflower # (Auto) 1.70 H (0.00-0.80) 10^3/uL Eos # (Auto) 0.24 (0.00-0.45) 10^3/uL Baso # (Auto) 0.01 10^3/uL PT 10.6 (9.7-12.3) SEC INR 1.03 (0.92-1.18) APTT 28.7 (23.2-32.3) SEC Sodium 126 L (136-145) mEq/L Potassium 3.8 (3.5-5.0) mEq/L Chloride 90 L (98-106) mEq/L Carbon Dioxide 27 (21-32) mmol/L BUN 25 H (7-18) mg/dL Creatinine 1.0 (0.7-1.3) mg/dL Est Cr Clr Drug Dosing 44.42 mL/min Estimated GFR (MDRD) > 60 (>=60) mL/min Glucose 113 H (75-99) mg/dL Lactic Acid (0.4-2.0) mmol/L Calcium 8.8 (8.4-10.1) mg/dL Total Bilirubin 1.4 H (0.0-1.0) mg/dL AST 25 (15-37) U/L ALT 20 (12-78) U/L Alkaline Phosphatase 54 (46-116) U/L Total Protein 6.3 L (6.4-8.2) g/dL Albumin 3.2 L (3.4-5.0) g/dL Urine Color (YELLOW) Urine Appearance (CLEAR) Urine pH (4.5-8.0) Ur Specific Wilsey (1.003-1.020) Urine Protein (NEGATIVE) mg/dL Urine Glucose (UA) (NEGATIVE) mg/dL Urine Ketones (NEGATIVE) mg/dL Urine Occult Blood (NEGATIVE) Urine Nitrite (NEGATIVE) Urine Bilirubin (NEGATIVE) Urine Urobilinogen (0.2-1.0) EU/dL Ur Leukocyte Esterase (NEGATIVE) Urine RBC (0-5) /HPF Urine WBC (0-5) /HPF Urine WBC Clumps (NOT SEEN) /HPF Amorphous Sediment (NOT SEEN) /HPF Urine Bacteria (NOT SEEN) /HPF Urinalysis Comment 03/22/19 03/22/19 Range/Units 06:36 06:37 WBC (5.0-10.0) 10^3/uL RBC (4.50-6.00) 10^6/uL Hgb (14.0-18.0) g/dL Hct (40.0-54.0) % MCV (82.0-94.0) fL MCH (27.0-32.0) pg MCHC (33.0-38.0) g/dL RDW Coeff of Darwin (11.0-15.0) % Plt Count (150-400) 10^3/uL Neut % (Auto) (35-85) % Lymph % (Auto) (10-55) % Sunflower % (Auto) (0-16) % Eos % (Auto) (0-5) % Baso % (Auto) (0-3) % Neut # (Auto) (1.80-7.00) 10^3/uL Lymph # (Auto) (1.00-4.80) 10^3/uL Sunflower # (Auto) (0.00-0.80) 10^3/uL Eos # (Auto) (0.00-0.45) 10^3/uL Baso # (Auto) 10^3/uL PT (9.7-12.3) SEC INR (0.92-1.18) APTT (23.2-32.3) SEC Sodium (136-145) mEq/L Potassium (3.5-5.0) mEq/L Chloride (98-106) mEq/L Carbon Dioxide (21-32) mmol/L BUN (7-18) mg/dL Creatinine (0.7-1.3) mg/dL Est Cr Clr Drug Dosing mL/min Estimated GFR (MDRD) (>=60) mL/min Glucose (75-99) mg/dL Lactic Acid 0.7 (0.4-2.0) mmol/L Calcium (8.4-10.1) mg/dL Total Bilirubin (0.0-1.0) mg/dL AST (15-37) U/L ALT (12-78) U/L Alkaline Phosphatase (46-116) U/L Total Protein (6.4-8.2) g/dL Albumin (3.4-5.0) g/dL Urine Color Yellow (YELLOW) Urine Appearance Clear (CLEAR) Urine pH 7.5 (4.5-8.0) Ur Specific Wilsey 1.020 (1.003-1.020) Urine Protein 100 H (NEGATIVE) mg/dL Urine Glucose (UA) Negative (NEGATIVE) mg/dL Urine Ketones Negative (NEGATIVE) mg/dL Urine Occult Blood Trace-intact H (NEGATIVE) Urine Nitrite Positive H (NEGATIVE) Urine Bilirubin Negative (NEGATIVE) Urine Urobilinogen 0.2 (0.2-1.0) EU/dL Ur Leukocyte Esterase Small H (NEGATIVE) Urine RBC Not seen (0-5) /HPF Urine WBC 5-10 H (0-5) /HPF Urine WBC Clumps Occasional H (NOT SEEN) /HPF Amorphous Sediment Few H (NOT SEEN) /HPF Urine Bacteria Few H (NOT SEEN) /HPF Urinalysis Comment Meds: Medications Generic Name Dose Route Start Last Admin Trade Name Freq PRN Reason Stop Dose Admin Sodium Chloride 1,000 mls @ 100 mls/hr 03/22/19 06:45 03/22/19 06:52 Normal Saline IV 100 mls/hr ASDIRECTED SANDRA Administration Discontinued Medications Generic Name Dose Route Start Last Admin Trade Name Freq PRN Reason Stop Dose Admin Iopamidol 200 ml 03/22/19 07:04 03/22/19 08:02 Isovue-370 (76%) IV 03/22/19 07:05 160 ml ONETIME ONE Administration Departure - Departure Time of Disposition: 09:22 Disposition: Home, Self-Care 01 Condition: Good Clinical Impression: Abdominal pain, Blood in stool - Discharge Information *PRESCRIPTION DRUG MONITORING PROGRAM REVIEWED*: Not Applicable *COPY OF PRESCRIPTION DRUG MONITORING REPORT IN PATIENT PABLITO: Not Applicable Instructions: Abdominal Pain, Adult, [id number] Forms: ED Department Discharge Additional Instructions: follow up with your family doctor this week, call in the morning for an appointment time for further evaluation and possible colonoscopy return to the ER sooner if worse or problems - Problem List & Annotations (1) Abdominal pain SNOMED Code(s): 07567990 Code(s): R10.9 - UNSPECIFIED ABDOMINAL PAIN Status: Acute Priority: High Current Visit: Yes Qualifiers: Abdominal location: generalized Qualified Code(s): R10.84 - Generalized abdominal pain (2) Blood in stool SNOMED Code(s): 453488309 Code(s): K92.1 - MELENA Status: Acute Priority: High Current Visit: Yes - Problem List Review Problem List Initiated/Reviewed/Updated: Yes - My Orders Last 24 Hours: My Active Orders 03/22/19 06:28 Chest 1V Frontal [CR] Stat OCCULT BLOOD SCREEN [OP] Stat 03/22/19 06:33 Abdomen Pelvis w Cont [CT] Stat 03/22/19 06:36 Cardiac Monitoring [RC] . DIRECTED CULTURE URINE [RM] Stat 03/22/19 06:45 Sodium Chloride 0.9% [Normal Saline] 1,000 ml IV ASDIRECTED - Assessment/Plan Last 24 Hours: My Active Orders 03/22/19 06:28 Chest 1V Frontal [CR] Stat OCCULT BLOOD SCREEN [OP] Stat 03/22/19 06:33 Abdomen Pelvis w Cont [CT] Stat 03/22/19 06:36 Cardiac Monitoring [RC] . DIRECTED CULTURE URINE [RM] Stat 03/22/19 06:45 Sodium Chloride 0.9% [Normal Saline] 1,000 ml IV ASDIRECTED Plan: as above
[2019-03-22] MEDS ORDERED: Sodium Chloride 0.9% 1,000 ML IV SCH (06:45)
[2019-03-22 06:48] VITALS: BP 224/91; PULSE 75
[2019-03-22] MEDS ORDERED: Iopamidol 755 Mg/ML 200 ML Bottle IV ONE (07:04)
[2019-03-22 07:29] LABS: CHLORIDE,CL 90 mEq/L (98-106)
[2019-03-22 07:34] LABS: SODIUM,NA 126 mEq/L (136-145)
== END 2019-03-22 10:15 | disposition home or self-care (01) ==
LOC: CC.ED 06:05
DX: K92.1 Melena (principal); R14.1 Gas pain; S20.212A Contusion of left front wall of thorax, initial encounter; S30.1XXA Contusion of abdominal wall, initial encounter; I10 Essential (primary) hypertension; E11.9 Type 2 diabetes mellitus without complications; M19.90 Unspecified osteoarthritis, unspecified site; M10.9 Gout, unspecified; Z88.1 Allergy status to other antibiotic agents; Z88.5 Allergy status to narcotic agent; Z88.8 Allergy status to other drugs, medicaments and biological substances; Z79.4 Long term (current) use of insulin; Z79.82 Long term (current) use of aspirin; Z95.0 Presence of cardiac pacemaker; W18.2XXA Fall in (into) shower or empty bathtub, initial encounter; R10.9 Unspecified abdominal pain
CPT/HCPCS: 36415; 71045; 74177; 80053; 81001; 83605; 85025; 85610; 85730; 87086; 87088; 87186; 93005; 93010; 96360; 96361; 99284; 99285; J7030; Q9967

== ENCOUNTER 2019-03-25 12:35 | Inpatient (IN) | payer MEDICARE, BC ==
[2019-03-25] MEDS ORDERED: Ondansetron 4 MG/2 ML SDV IV PRN (16:15)
[2019-03-25] MEDS ORDERED: Sodium Chloride 0.9% 10 ML Syringe FLUSH PRN (16:15)
[2019-03-25] MEDS ORDERED: Magnesium Hydroxide 400 MG/5 ML Susp 30 ML Cup PO PRN (16:19)
[2019-03-25] MEDS ORDERED: diphenhydrAMINE 25 MG Cap PO PRN (16:19)
[2019-03-25] MEDS: Acetaminophen 325 MG Tab PO PRN ×2 (16:48→23:50)
[2019-03-25] MEDS: cefTAZidime 1 GM Vial IVPUSH SCH (16:50)
[2019-03-25] MEDS: Enoxaparin 30 MG/0.3 ML Syringe SUBCUT SCH (16:54)
[2019-03-25] MEDS: Metoprolol Tartrate 50 MG Tab PO SCH (19:26)
[2019-03-25] MEDS: hydrALAZINE 25 MG Tab PO SCH (19:27)
[2019-03-25] MEDS: cloNIDine 0.1 MG Tab PO SCH (19:27)
[2019-03-25] MEDS: Insulin Glargine,Human Rec. Analog 100 Units/ML 3 ML Pen SUBCUT SCH (19:28)
[2019-03-25] MEDS: Docusate Sodium 100 MG Cap PO PRN (23:50)
[2019-03-26] MEDS: Acetaminophen 325 MG Tab PO PRN ×3 (07:43→20:07)
[2019-03-26] MEDS: hydrALAZINE 25 MG Tab PO SCH ×3 (07:43→20:06)
[2019-03-26] MEDS: Allopurinol 100 MG Tab PO SCH (07:43)
[2019-03-26] MEDS: Metoprolol Tartrate 50 MG Tab PO SCH ×2 (07:44→20:07)
[2019-03-26] MEDS: Lisinopril 20 MG Tab PO SCH (07:44)
[2019-03-26] MEDS: Docusate Sodium 100 MG Cap PO PRN (07:44)
[2019-03-26] MEDS: Folic Acid 1 MG Tab PO SCH (07:44)
[2019-03-26] MEDS: Aspirin 81 MG Tab.EC PO SCH (07:44)
[2019-03-26] MEDS: cloNIDine 0.1 MG Tab PO SCH ×2 (07:44→20:06)
[2019-03-26] MEDS: Simvastatin 20 MG Tab PO SCH (07:44)
[2019-03-26] MEDS: cefTAZidime 1 GM Vial IVPUSH SCH ×2 (07:45→20:06)
[2019-03-26] MEDS: Polyethylene Glycol 3350 Powder 17 GM Packet PO SCH (07:45)
[2019-03-26 08:11] LABS: CHLORIDE,CL 95 mEq/L (98-106); SODIUM,NA 131 mEq/L (136-145)
--- NOTE | 2019-03-26 14:13 | PCM.PN ---
- General Info Date of Service: 03/26/19 Admission Dx/Problem (Free Text): UTI Weakness Multiple Rib Fractures Subjective Update: Hany is a 88 year old male who was admitted to the hospital 03/25/2019 for UTI. Had been seen in the ED prior on two occasions and urine culture came back positive. Unable to be treated with oral antibiotics due to resistance, so was admitted for IV antibiotics. He has been more weak than usual and had been having multiple falls at home, most recent which resulted in left rib fractures 7-9. has been struggling to care for him at home following rib fractures as patient was having significant pain. Sodium has also consistently been low. Most recently his hydrochlorothiazide has been discontinued. He reports his pain seems to be well controlled. Denies pain at rest, but reports he'll get episodes where pain is more significant. Pain increases with any movement. Has been tolerating general diet. Continues to have generalized weakness. Does require assist of 1 and FWW with activity. Has been afebrile since admit. Labs are improving. Functional Status: Reports: Pain Controlled, Tolerating Diet, Ambulating, Urinating. Denies: New Symptoms - Review of Systems General: Reports: Weakness, Fatigue, Chills. Denies: Fever Pulmonary: Reports: No Symptoms. Denies: Shortness of Breath, Cough Cardiovascular: Reports: No Symptoms. Denies: Chest Pain, Dyspnea on Exertion, Edema, Lightheadedness Gastrointestinal: Reports: No Symptoms. Denies: Abdominal Pain, Decreased Appetite, Diarrhea, Nausea, Vomiting Genitourinary: Reports: Other (suprapubic catheter) Musculoskeletal: Reports: Other (left sided rib pain) Skin: Reports: No Symptoms Neurological: Reports: Confusion (at baseline), Weakness. Denies: Dizziness, Numbness, Syncope, Tingling Psychiatric: Reports: Anxiety - Patient Data Vitals - Most Recent: Last Vital Signs Temp 97.6 F 03/26/19 11:25 Pulse 60 03/26/19 11:25 Resp 18 03/26/19 11:25 BP 123/105 H 03/26/19 13:42 Pulse Ox 97 03/26/19 11:25 Weight - Most Recent: 216 lb 6.4 oz I&O - Last 24 Hours: Intake & Output 03/25/19 03/26/19 03/26/19 22:59 06:59 14:59 Output Total 500 Balance -500 Lab Results Last 24 Hours: Laboratory Results - last 24 hr 03/25/19 03/25/19 03/25/19 Range/Units 16:15 16:15 17:11 WBC 11.3 H (5.0-10.0) 10^3/uL RBC 2.94 L (4.50-6.00) 10^6/uL Hgb 10.7 L (14.0-18.0) g/dL Hct 30.5 L (40.0-54.0) % MCV 103.7 H (82.0-94.0) fL MCH 36.4 H (27.0-32.0) pg MCHC 35.1 (33.0-38.0) g/dL RDW Coeff of Darwin 11.8 (11.0-15.0) % Plt Count 239 (150-400) 10^3/uL Neut % (Auto) 72.6 (35-85) % Lymph % (Auto) 12.1 (10-55) % [place] % (Auto) 13.2 (0-16) % Eos % (Auto) 1.9 (0-5) % Baso % (Auto) 0.2 (0-3) % Neut # (Auto) 8.23 H (1.80-7.00) 10^3/uL Lymph # (Auto) 1.37 (1.00-4.80) 10^3/uL [place] # (Auto) 1.49 H (0.00-0.80) 10^3/uL Eos # (Auto) 0.22 (0.00-0.45) 10^3/uL Baso # (Auto) 0.02 10^3/uL Sodium 131 L (136-145) mEq/L Potassium 4.4 (3.5-5.0) mEq/L Chloride 94 L (98-106) mEq/L Carbon Dioxide 29 (21-32) mmol/L BUN 29 H (7-18) mg/dL Creatinine 1.2 (0.7-1.3) mg/dL Est Cr Clr Drug Dosing 35.63 mL/min Estimated GFR (MDRD) 57 L (>=60) mL/min Glucose 110 H (75-99) mg/dL POC Glucose 112 H (75-105) mg/dl Calcium 9.2 (8.4-10.1) mg/dL C-Reactive Protein 3.4 H (0.2-0.8) mg/dL 03/25/19 03/26/19 03/26/19 Range/Units 19:18 07:39 07:39 WBC 9.2 (5.0-10.0) 10^3/uL RBC 2.91 L (4.50-6.00) 10^6/uL Hgb 10.6 L (14.0-18.0) g/dL Hct 29.9 L (40.0-54.0) % MCV 102.7 H (82.0-94.0) fL MCH 36.4 H (27.0-32.0) pg MCHC 35.5 (33.0-38.0) g/dL RDW Coeff of Darwin 11.4 (11.0-15.0) % Plt Count 236 (150-400) 10^3/uL Neut % (Auto) 72.7 (35-85) % Lymph % (Auto) 11.7 (10-55) % [place] % (Auto) 13.6 (0-16) % Eos % (Auto) 1.8 (0-5) % Baso % (Auto) 0.2 (0-3) % Neut # (Auto) 6.71 (1.80-7.00) 10^3/uL Lymph # (Auto) 1.08 (1.00-4.80) 10^3/uL [place] # (Auto) 1.26 H (0.00-0.80) 10^3/uL Eos # (Auto) 0.17 (0.00-0.45) 10^3/uL Baso # (Auto) 0.02 10^3/uL Sodium 131 L (136-145) mEq/L Potassium 4.9 (3.5-5.0) mEq/L Chloride 95 L (98-106) mEq/L Carbon Dioxide 29 (21-32) mmol/L BUN 25 H (7-18) mg/dL Creatinine 1.1 (0.7-1.3) mg/dL Est Cr Clr Drug Dosing 38.87 mL/min Estimated GFR (MDRD) > 60 (>=60) mL/min Glucose 113 H (75-99) mg/dL POC Glucose 170 H (75-105) mg/dl Calcium 8.9 (8.4-10.1) mg/dL C-Reactive Protein 3.7 H (0.2-0.8) mg/dL 03/26/19 03/26/19 Range/Units 07:39 11:24 WBC (5.0-10.0) 10^3/uL RBC (4.50-6.00) 10^6/uL Hgb (14.0-18.0) g/dL Hct (40.0-54.0) % MCV (82.0-94.0) fL MCH (27.0-32.0) pg MCHC (33.0-38.0) g/dL RDW Coeff of Darwin (11.0-15.0) % Plt Count (150-400) 10^3/uL Neut % (Auto) (35-85) % Lymph % (Auto) (10-55) % [place] % (Auto) (0-16) % Eos % (Auto) (0-5) % Baso % (Auto) (0-3) % Neut # (Auto) (1.80-7.00) 10^3/uL Lymph # (Auto) (1.00-4.80) 10^3/uL [place] # (Auto) (0.00-0.80) 10^3/uL Eos # (Auto) (0.00-0.45) 10^3/uL Baso # (Auto) 10^3/uL Sodium (136-145) mEq/L Potassium (3.5-5.0) mEq/L Chloride (98-106) mEq/L Carbon Dioxide (21-32) mmol/L BUN (7-18) mg/dL Creatinine (0.7-1.3) mg/dL Est Cr Clr Drug Dosing mL/min Estimated GFR (MDRD) (>=60) mL/min Glucose (75-99) mg/dL POC Glucose 114 H 147 H (75-105) mg/dl Calcium (8.4-10.1) mg/dL C-Reactive Protein (0.2-0.8) mg/dL Med Orders - Current: Current Medications Acetaminophen (Tylenol) 650 mg PO Q4H PRN PRN Reason: Pain (Mild 1-3)/fever Last Admin: 03/26/19 13:41 Dose: 650 mg Allopurinol (Zyloprim) 100 mg PO DAILY [facility] Last Admin: 03/26/19 07:43 Dose: 100 mg Aspirin (Halfprin) 81 mg PO DAILY [facility] Last Admin: 03/26/19 07:44 Dose: 81 mg Ceftazidime (Fortaz) 1 gm IVPUSH BID [facility] Last Admin: 03/26/19 07:45 Dose: 1 gm Clonidine HCl (Catapres) 0.2 mg PO BID [facility] Last Admin: 03/26/19 07:44 Dose: 0.2 mg Diphenhydramine HCl (Benadryl) 25 mg PO QID PRN PRN Reason: Allergies Docusate Sodium (Colace) 100 mg PO BID PRN PRN Reason: Constipation Last Admin: 03/25/19 23:50 Dose: 100 mg Enoxaparin Sodium (Lovenox) 30 mg SUBCUT DAILY@1600 [facility] Last Admin: 03/25/19 16:54 Dose: 30 mg Folic Acid (Folic Acid) 1 mg PO DAILY [facility] Last Admin: 03/26/19 07:44 Dose: 1 mg Hydralazine HCl (Apresoline) 50 mg PO TID [facility] Last Admin: 03/26/19 13:42 Dose: 50 mg Insulin Glargine (Lantus Solostar) 10 units SUBCUT BEDTIME [facility] Last Admin: 03/25/19 19:28 Dose: 10 units Lisinopril (Prinivil) 20 mg PO DAILY [facility] Last Admin: 03/26/19 07:44 Dose: 20 mg Magnesium Hydroxide (Milk Of Magnesia) 30 ml PO DAILY PRN PRN Reason: Constipation Magnesium Oxide (Magnesium Oxide) 250 mg PO DAILY [facility] Last Admin: 03/26/19 07:44 Dose: 250 mg Metoprolol Tartrate (Lopressor) 100 mg PO BID [facility] Last Admin: 03/26/19 07:44 Dose: 100 mg Ondansetron HCl (Zofran) 4 mg IV Q4H PRN PRN Reason: Nausea/Vomiting Polyethylene Glycol (Miralax) 17 gm PO DAILY [facility] Last Admin: 03/26/19 07:45 Dose: 17 gm Simvastatin (Zocor) 40 mg PO DAILY [facility] Last Admin: 03/26/19 07:44 Dose: 40 mg Sodium Chloride (Saline Flush) 10 ml FLUSH ASDIRECTED PRN PRN Reason: Keep Vein Open - Exam Quality Assessment: Urine Catheter (chronic suprapubic) General: Alert, Oriented, No Acute Distress Neck: Supple Lungs: Clear to Auscultation, Normal Respiratory Effort Cardiovascular: Regular Rate, Regular Rhythm GI/Abdominal Exam: Normal Bowel Sounds, Soft, Non-Tender, No Organomegaly, No Distention, No Abnormal Bruit, No Mass, Pelvis Stable, Other (suprapubic catheter) Back Exam: Normal Inspection, Full Range of Motion. No: CVA Tenderness (L), CVA Tenderness (R) Extremities: Normal Inspection, Normal Range of Motion, Non-Tender, No Pedal Edema, Normal Capillary Refill Neurological: No New Focal Deficit Psy/Mental Status: Anxious - Problem List & Annotations (1) Chronic urinary tract infection SNOMED Code(s): 814307464 Code(s): N39.0 - URINARY TRACT INFECTION, SITE NOT SPECIFIED Status: Acute Priority: High (2) Hyponatremia SNOMED Code(s): 53530825 Code(s): E87.1 - HYPO-OSMOLALITY AND HYPONATREMIA Status: Acute Priority : High (3) Ribs, multiple fractures SNOMED Code(s): 9023510 Code(s): S22.49XA - MULTIPLE FRACTURES OF RIBS, UNSP SIDE, INIT FOR CLOS FX Status: Acute Priority: High Qualifiers: Encounter type: initial encounter Fracture type: closed Laterality: left Qualified Code(s): S22.42XA - Multiple fractures of ribs, left side, initial encounter for closed fracture (4) Diabetes mellitus type 2 SNOMED Code(s): 08130675 Code(s): E11.9 - TYPE 2 DIABETES MELLITUS WITHOUT COMPLICATIONS Status: Chronic Priority: Medium (5) HTN, Benign hypertension SNOMED Code(s): 48963993 Code(s): I10 - ESSENTIAL (PRIMARY) HYPERTENSION Status: Chronic Priority : Medium - Problem List Review Problem List Initiated/Reviewed/Updated: Yes - Assessment Assessment:: UTI, multiple drug resistance Multiple Left Sided Rib Fractures Type II DM Hypertension Generalized weakness - Plan Plan:: Will continue with IV ceftazidime. Did consult with Dr. Shane (urologist) who recommends 5 day treatment given most recent culture. Did discuss likelihood of colonization, but given patient is symptomatic with multiple falls and worsening weakness, will treat. Patient has also been more confused, worse in evenings, but this is likely patient's baseline. WBC improved from 11.3 to 9.2. Sodium remains at 131. Hemoglobin stable at 10.6. Did recently have positive fecal occult. Continue pain meds as needed for pain. Will add Flexeril as needed as well. Patient very restless at times, setting bed alarm off frequently and very anxious, especially when is not present. Will add PO Ativan. Continue current antihypertensives. BP has been slightly elevated. Will continue to monitor. Blood sugars have been well controlled. Plan is for patient to discharge to [facility] after completion of IV antibiotics. Case management working on arrangements. Patient and agreeable with this plan. Anticipate discharge to [facility] Saturday.
[2019-03-26] MEDS: LORazepam 0.5 MG Tab PO PRN (15:11)
[2019-03-26] MEDS: Cyclobenzaprine 10 MG Tab PO PRN (15:45)
[2019-03-26] MEDS: Enoxaparin 30 MG/0.3 ML Syringe SUBCUT SCH (15:45)
[2019-03-26] MEDS: Insulin Glargine,Human Rec. Analog 100 Units/ML 3 ML Pen SUBCUT SCH (20:08)
[2019-03-27] MEDS: Cyclobenzaprine 10 MG Tab PO PRN ×2 (02:14→22:30)
[2019-03-27] MEDS: Allopurinol 100 MG Tab PO SCH (07:49)
[2019-03-27] MEDS: Simvastatin 20 MG Tab PO SCH (07:49)
[2019-03-27] MEDS: cefTAZidime 1 GM Vial IVPUSH SCH ×2 (07:49→19:51)
[2019-03-27] MEDS: Aspirin 81 MG Tab.EC PO SCH (07:49)
[2019-03-27] MEDS: Polyethylene Glycol 3350 Powder 17 GM Packet PO SCH (07:49)
[2019-03-27] MEDS: Folic Acid 1 MG Tab PO SCH (07:49)
[2019-03-27] MEDS: Lisinopril 20 MG Tab PO SCH (10:32)
[2019-03-27] MEDS: hydrALAZINE 25 MG Tab PO SCH ×3 (10:33→19:56)
[2019-03-27] MEDS: Metoprolol Tartrate 50 MG Tab PO SCH ×2 (10:34→19:57)
[2019-03-27] MEDS: cloNIDine 0.1 MG Tab PO SCH ×2 (11:52→19:56)
[2019-03-27] MEDS: Sodium Chloride 0.9% 1,000 ML IV SCH (12:06)
--- NOTE | 2019-03-27 13:29 | PN ---
DATE: 03/27/2019 S: Hany is an 88-year-old gentleman, who presented to the clinic on Saturday after being seen in the emergency room over the weekend with the concerns of some generalized weakness, just not feeling well. Local provider on-call did do a complete workup to include urinalysis that showed positive nitrites. He did not start antibiotics at that time as he was pending culture. The patient does have a suprapubic catheter. Has been on Macrobid daily for chronic history of UTIs. Does have a history of Klebsiella and Pseudomonas. Culture on Saturday did come back and did show Klebsiella and Pseudomonas. Due to the patient's symptoms, we did elect to admit to the hospital at that point in time for IV antibiotics. He was slated to go to the [facility] for placement on Saturday. The patient presented with his and niece to the clinic, which we did admit him for IV antibiotics. Hany has been doing fairly well. He continues to be tired and does feel weak in general. Laboratory work completed today did show a white blood count of 9200, hemoglobin has been stable at 10.6. Sodium is slightly low at 131 with a BUN of 25. Blood sugars have been stable. He is a known diabetic. CRP is slightly elevated at 3.7 today. O: VITAL SIGNS: Blood pressure of 179/50, pulse of 65, O2 is 97% on room air, respiratory rate is 18 with a temperature of 97.6. GENERAL: Pleasant cooperative male. He does appear to be his normal self. He is sitting in the recliner, currently having normal conversation with me. HEENT: Grossly unremarkable. LUNGS: Clear to auscultation. I did not hear any adventitious sounds. CARDIAC: . No murmurs are noted. No pedal edema is noted. ABDOMEN: Morbidly obese, however soft. Bowel sounds are present. Normoactive. The patient is having active pass of gas in the room. ASSESSMENT: URINARY TRACT INFECTION WITH PSEUDOMONAS AND KLEBSIELLA BACTERIA. P: Suprapubic catheter was changed yesterday, which his to bring in supplies for this. We will look at discharging Saturday at 9:30 to the [facility] for placement. He will continue to get IV antibiotics during his time here. His blood pressure has been slightly low this morning per nurse. We did review his medicines, which he takes hydralazine 50 mg daily with clonidine 0.1 mg b.i.d., metoprolol succinate 100 mg daily, and lisinopril 20 mg daily. We will hold his clonidine, hydralazine, and metoprolol this morning. We will give him his lisinopril, re-check his blood pressure on noon. We will start some IV fluids to give him a little bit of normal saline at 70 mL an hour and recheck basic metabolic panel in the morning as well. No further concerns at this point in time. Nurse will be in touch with us in regard to his blood pressure. SHEKHAR/REGINALDO /[id number]
[2019-03-27] MEDS: Enoxaparin 30 MG/0.3 ML Syringe SUBCUT SCH (16:09)
[2019-03-27] MEDS: Insulin Glargine,Human Rec. Analog 100 Units/ML 3 ML Pen SUBCUT SCH (20:14)
[2019-03-27] MEDS: Acetaminophen 325 MG Tab PO PRN (22:30)
[2019-03-28] MEDS: Sodium Chloride 0.9% 1,000 ML IV SCH ×2 (01:41→15:50)
[2019-03-28] MEDS: Lisinopril 20 MG Tab PO SCH (07:48)
[2019-03-28] MEDS: Polyethylene Glycol 3350 Powder 17 GM Packet PO SCH (07:48)
[2019-03-28] MEDS: Aspirin 81 MG Tab.EC PO SCH (07:48)
[2019-03-28] MEDS: Acetaminophen 325 MG Tab PO PRN ×2 (07:49→16:15)
[2019-03-28] MEDS: cloNIDine 0.1 MG Tab PO SCH ×2 (07:49→19:29)
[2019-03-28] MEDS: Allopurinol 100 MG Tab PO SCH (07:49)
[2019-03-28] MEDS: Simvastatin 20 MG Tab PO SCH (07:49)
[2019-03-28] MEDS: Folic Acid 1 MG Tab PO SCH (07:49)
[2019-03-28] MEDS: Metoprolol Tartrate 50 MG Tab PO SCH ×2 (07:50→19:29)
[2019-03-28] MEDS: hydrALAZINE 25 MG Tab PO SCH ×3 (07:51→19:28)
[2019-03-28] MEDS: cefTAZidime 1 GM Vial IVPUSH SCH ×2 (07:51→19:23)
[2019-03-28 08:06] LABS: CHLORIDE,CL 98 mEq/L (98-106); SODIUM,NA 134 mEq/L (136-145)
--- NOTE | 2019-03-28 13:17 | PCM.PN ---
- General Info Date of Service: 03/28/19 Admission Dx/Problem (Free Text): UTI Weakness Multiple Rib Fractures Subjective Update: Hany is a 88 year old male who was admitted to the hospital 03/25/2019 for UTI. Had been seen in the ED prior on two occasions and urine culture came back positive. Unable to be treated with oral antibiotics due to resistance, so was admitted for IV antibiotics. He has been more weak than usual and had been having multiple falls at home, most recent which resulted in left rib fractures 7-9. has been struggling to care for him at home following rib fractures as patient was having significant pain. Sodium has also consistently been low. Most recently his hydrochlorothiazide has been discontinued. He reports his pain seems to be well controlled. Denies pain at rest, but reports he'll get episodes where pain is more significant. Pain increases with any movement. Has been tolerating general diet. Continues to have generalized weakness. Does require assist of 1 and FWW with activity. Has been afebrile since admit. Labs are improving. - Review of Systems General: Denies: Fever HEENT: Reports: No Symptoms Pulmonary: Reports: No Symptoms, Other (still c/o left rib pain). Denies: Shortness of Breath Cardiovascular: Reports: No Symptoms. Denies: Chest Pain Gastrointestinal: Reports: No Symptoms. Denies: Abdominal Pain, Nausea, Vomiting Genitourinary: Reports: No Symptoms Musculoskeletal: Reports: No Symptoms Skin: Reports: No Symptoms Neurological: Reports: No Symptoms Psychiatric: Reports: No Symptoms - Patient Data Vitals - Most Recent: Last Vital Signs Temp 36.4 C 03/28/19 11:38 Pulse 60 03/28/19 11:38 Resp 18 03/28/19 11:38 BP 142/59 H 03/28/19 11:38 Pulse Ox 98 03/28/19 11:38 Weight - Most Recent: 98.157 kg I&O - Last 24 Hours: Intake & Output 03/27/19 03/28/19 03/28/19 22:59 06:59 14:59 Intake Total 951 400 Output Total 475 1050 Balance -475 -99 400 Lab Results Last 24 Hours: Laboratory Results - last 24 hr 03/27/19 03/27/19 03/28/19 Range/Units 17:29 20:10 07:43 WBC (5.0-10.0) 10^3/uL RBC (4.50-6.00) 10^6/uL Hgb (14.0-18.0) g/dL Hct (40.0-54.0) % MCV (82.0-94.0) fL MCH (27.0-32.0) pg MCHC (33.0-38.0) g/dL RDW Coeff of Darwin (11.0-15.0) % Plt Count (150-400) 10^3/uL Neut % (Auto) (35-85) % Lymph % (Auto) (10-55) % [place] % (Auto) (0-16) % Eos % (Auto) (0-5) % Baso % (Auto) (0-3) % Neut # (Auto) (1.80-7.00) 10^3/uL Lymph # (Auto) (1.00-4.80) 10^3/uL [place] # (Auto) (0.00-0.80) 10^3/uL Eos # (Auto) (0.00-0.45) 10^3/uL Baso # (Auto) 10^3/uL Sodium (136-145) mEq/L Potassium (3.5-5.0) mEq/L Chloride (98-106) mEq/L Carbon Dioxide (21-32) mmol/L BUN (7-18) mg/dL Creatinine (0.7-1.3) mg/dL Est Cr Clr Drug Dosing mL/min Estimated GFR (MDRD) (>=60) mL/min Glucose (75-99) mg/dL POC Glucose 141 H 231 H 120 H (75-105) mg/dl Calcium (8.4-10.1) mg/dL C-Reactive Protein (0.2-0.8) mg/dL 03/28/19 03/28/19 03/28/19 Range/Units 07:50 07:50 11:36 WBC 8.3 (5.0-10.0) 10^3/uL RBC 2.96 L (4.50-6.00) 10^6/uL Hgb 10.9 L (14.0-18.0) g/dL Hct 30.4 L (40.0-54.0) % MCV 102.7 H (82.0-94.0) fL MCH 36.8 H (27.0-32.0) pg MCHC 35.9 (33.0-38.0) g/dL RDW Coeff of Darwin 11.7 (11.0-15.0) % Plt Count 257 (150-400) 10^3/uL Neut % (Auto) 67.3 (35-85) % Lymph % (Auto) 16.4 (10-55) % [place] % (Auto) 13.9 (0-16) % Eos % (Auto) 2.0 (0-5) % Baso % (Auto) 0.4 (0-3) % Neut # (Auto) 5.59 (1.80-7.00) 10^3/uL Lymph # (Auto) 1.36 (1.00-4.80) 10^3/uL [place] # (Auto) 1.15 H (0.00-0.80) 10^3/uL Eos # (Auto) 0.17 (0.00-0.45) 10^3/uL Baso # (Auto) 0.03 10^3/uL Sodium 134 L (136-145) mEq/L Potassium 4.1 (3.5-5.0) mEq/L Chloride 98 (98-106) mEq/L Carbon Dioxide 29 (21-32) mmol/L BUN 18 (7-18) mg/dL Creatinine 1.0 (0.7-1.3) mg/dL Est Cr Clr Drug Dosing 42.76 mL/min Estimated GFR (MDRD) > 60 (>=60) mL/min Glucose 115 H (75-99) mg/dL POC Glucose 148 H (75-105) mg/dl Calcium 8.7 (8.4-10.1) mg/dL C-Reactive Protein 2.0 H (0.2-0.8) mg/dL Med Orders - Current: Current Medications Acetaminophen (Tylenol) 650 mg PO Q4H PRN PRN Reason: Pain (Mild 1-3)/fever Last Admin: 03/28/19 07:49 Dose: 650 mg Allopurinol (Zyloprim) 100 mg PO DAILY [facility] Last Admin: 03/28/19 07:49 Dose: 100 mg Aspirin (Halfprin) 81 mg PO DAILY [facility] Last Admin: 03/28/19 07:48 Dose: 81 mg Ceftazidime (Fortaz) 1 gm IVPUSH BID [facility] Last Admin: 03/28/19 07:51 Dose: 1 gm Clonidine HCl (Catapres) 0.2 mg PO BID [facility] Last Admin: 03/28/19 07:49 Dose: 0.2 mg Cyclobenzaprine HCl (Flexeril) 10 mg PO TID PRN PRN Reason: Pain Last Admin: 03/27/19 22:30 Dose: 10 mg Diphenhydramine HCl (Benadryl) 25 mg PO QID PRN PRN Reason: Allergies Docusate Sodium (Colace) 100 mg PO BID PRN PRN Reason: Constipation Last Admin: 03/25/19 23:50 Dose: 100 mg Enoxaparin Sodium (Lovenox) 30 mg SUBCUT DAILY@1600 [facility] Last Admin: 03/27/19 16:09 Dose: 30 mg Folic Acid (Folic Acid) 1 mg PO DAILY [facility] Last Admin: 03/28/19 07:49 Dose: 1 mg Hydralazine HCl (Apresoline) 50 mg PO TID [facility] Last Admin: 03/28/19 07:51 Dose: 50 mg Sodium Chloride (Normal Saline) 1,000 mls @ 70 mls/hr IV ASDIRECTED [facility] Last Admin: 03/28/19 01:41 Dose: 70 mls/hr Insulin Glargine (Lantus Solostar) 10 units SUBCUT BEDTIME [facility] Last Admin: 03/27/19 20:14 Dose: 10 units Lisinopril (Prinivil) 20 mg PO DAILY [facility] Last Admin: 03/28/19 07:48 Dose: 20 mg Lorazepam (Ativan) 0.5 mg PO Q6H PRN PRN Reason: Anxiety Last Admin: 03/26/19 15:11 Dose: 0.5 mg Magnesium Hydroxide (Milk Of Magnesia) 30 ml PO DAILY PRN PRN Reason: Constipation Magnesium Oxide (Magnesium Oxide) 250 mg PO DAILY [facility] Last Admin: 03/28/19 07:48 Dose: 250 mg Metoprolol Tartrate (Lopressor) 100 mg PO BID [facility] Last Admin: 03/28/19 07:50 Dose: 100 mg Ondansetron HCl (Zofran) 4 mg IV Q4H PRN PRN Reason: Nausea/Vomiting Polyethylene Glycol (Miralax) 17 gm PO DAILY [facility] Last Admin: 03/28/19 07:48 Dose: 17 gm Simvastatin (Zocor) 40 mg PO DAILY [facility] Last Admin: 03/28/19 07:49 Dose: 40 mg Sodium Chloride (Saline Flush) 10 ml FLUSH ASDIRECTED PRN PRN Reason: Keep Vein Open - Exam General: Alert, Oriented, Cooperative HEENT: Mucous Membr. Moist/[place] Neck: Supple, Trachea Midline Lungs: Clear to Auscultation, Normal Respiratory Effort Cardiovascular: Regular Rate, Regular Rhythm GI/Abdominal Exam: Normal Bowel Sounds, Soft, Non-Tender Back Exam: Normal Inspection, Full Range of Motion Extremities: Normal Inspection, Normal Range of Motion, Non-Tender, No Pedal Edema, Normal Capillary Refill Peripheral Pulses: 2+: Radial (L), Radial (R), Dorsalis Pedis (L), Dorsalis Pedis (R) Skin: Warm, Dry, Intact, Ecchymosis (left flank) Neurological: No New Focal Deficit Psy/Mental Status: Alert, Normal Affect, Normal Mood - Problem List Review Problem List Initiated/Reviewed/Updated: Yes - Assessment Assessment:: UTI, multiple drug resistance Multiple Left Sided Rib Fractures Type II DM Hypertension Generalized weakness - Plan Plan:: Will continue with IV ceftazidime. Did consult with Dr. Shane (urologist) who recommends 5 day treatment given most recent culture. Did discuss likelihood of colonization, but given patient is symptomatic with multiple falls and worsening weakness, will treat. Patient has also been more confused, worse in evenings, but this is likely patient's baseline. WBC improved from 11.3 to 9.2. Sodium remains at 131. Hemoglobin stable at 10.6. Did recently have positive fecal occult. Continue pain meds as needed for pain. Will add Flexeril as needed as well. Patient very restless at times, setting bed alarm off frequently and very anxious, especially when is not present. Will add PO Ativan. Continue current antihypertensives. BP has been slightly elevated. Will continue to monitor. Blood sugars have been well controlled. Plan is for patient to discharge to [facility] after completion of IV antibiotics. Case management working on arrangements. Patient and agreeable with this plan. Anticipate discharge to [facility] Saturday. 03/28- 1315 The patient was evaluated in the hospital room, the patient's white blood cell count is normal, he remains anemic which is stable for him at this point. The general chemistries are essentially negative see the results from today for complete details. The patient is currently receiving IV antibiotic for urinary tract infection as the recommendation from the urologist is 5 days of IV antibiotics. The patient is scheduled to go to the intermediate on Saturday. The patient's blood pressure has improved over yesterday, the patient is receiving 3 separate types of blood pressure medications, his blood pressure will be monitored closely of his blood pressures to low his blood pressure medicine be held and continuously reassessed. The patient will have repeat labs in the morning and again will continue his IV antibiotics as directed by the urologist.
[2019-03-28] MEDS: Enoxaparin 30 MG/0.3 ML Syringe SUBCUT SCH (15:50)
[2019-03-28] MEDS: Insulin Glargine,Human Rec. Analog 100 Units/ML 3 ML Pen SUBCUT SCH (20:10)
[2019-03-29] MEDS: Acetaminophen 325 MG Tab PO PRN ×2 (01:33→05:43)
[2019-03-29] MEDS: Cyclobenzaprine 10 MG Tab PO PRN (01:33)
[2019-03-29] MEDS: Sodium Chloride 0.9% 1,000 ML IV SCH ×2 (05:39→19:45)
[2019-03-29] MEDS: cefTAZidime 1 GM Vial IVPUSH SCH ×2 (07:33→19:27)
[2019-03-29] MEDS: Polyethylene Glycol 3350 Powder 17 GM Packet PO SCH (07:33)
[2019-03-29] MEDS: Allopurinol 100 MG Tab PO SCH (07:36)
[2019-03-29] MEDS: Aspirin 81 MG Tab.EC PO SCH (07:37)
[2019-03-29] MEDS: Folic Acid 1 MG Tab PO SCH (07:37)
[2019-03-29] MEDS: Lisinopril 20 MG Tab PO SCH (07:37)
[2019-03-29] MEDS: hydrALAZINE 25 MG Tab PO SCH ×3 (07:37→19:46)
[2019-03-29] MEDS: Metoprolol Tartrate 50 MG Tab PO SCH ×2 (07:38→19:46)
[2019-03-29] MEDS: cloNIDine 0.1 MG Tab PO SCH ×2 (07:38→19:46)
[2019-03-29] MEDS: Simvastatin 20 MG Tab PO SCH (07:38)
--- NOTE | 2019-03-29 08:11 | PCM.PN ---
- General Info Date of Service: 03/29/19 - Review of Systems General: Reports: No Symptoms. Denies: Fever, Weakness HEENT: Reports: No Symptoms Pulmonary: Reports: No Symptoms, Other (left chest wall pain, has fx ribs on that side). Denies: Shortness of Breath Cardiovascular: Reports: No Symptoms. Denies: Chest Pain Gastrointestinal: Reports: No Symptoms. Denies: Abdominal Pain Musculoskeletal: Reports: No Symptoms Skin: Reports: No Symptoms Neurological: Reports: No Symptoms Psychiatric: Reports: No Symptoms - Patient Data Vitals - Most Recent: Last Vital Signs Temp 36.7 C 03/29/19 07:49 Pulse 71 03/29/19 07:49 Resp 18 03/29/19 07:49 BP 181/69 H 03/29/19 07:49 Pulse Ox 97 03/29/19 07:49 Weight - Most Recent: 98.157 kg I&O - Last 24 Hours: Intake & Output 03/28/19 03/29/19 03/29/19 22:59 06:59 14:59 Intake Total 991 967 Output Total 1200 Balance 991 -233 Lab Results Last 24 Hours: Laboratory Results - last 24 hr 03/28/19 03/28/19 03/28/19 Range/Units 07:50 11:36 16:43 Sodium 134 L (136-145) mEq/L Potassium 4.1 (3.5-5.0) mEq/L Chloride 98 (98-106) mEq/L Carbon Dioxide 29 (21-32) mmol/L BUN 18 (7-18) mg/dL Creatinine 1.0 (0.7-1.3) mg/dL Est Cr Clr Drug Dosing 42.76 mL/min Estimated GFR (MDRD) > 60 (>=60) mL/min Glucose 115 H (75-99) mg/dL POC Glucose 148 H 133 H (75-105) mg/dl Calcium 8.7 (8.4-10.1) mg/dL C-Reactive Protein 2.0 H (0.2-0.8) mg/dL 03/28/19 03/29/19 Range/Units 20:06 07:48 Sodium (136-145) mEq/L Potassium (3.5-5.0) mEq/L Chloride (98-106) mEq/L Carbon Dioxide (21-32) mmol/L BUN (7-18) mg/dL Creatinine (0.7-1.3) mg/dL Est Cr Clr Drug Dosing mL/min Estimated GFR (MDRD) (>=60) mL/min Glucose (75-99) mg/dL POC Glucose 193 H 113 H (75-105) mg/dl Calcium (8.4-10.1) mg/dL C-Reactive Protein (0.2-0.8) mg/dL Med Orders - Current: Current Medications Acetaminophen (Tylenol) 650 mg PO Q4H PRN PRN Reason: Pain (Mild 1-3)/fever Last Admin: 03/29/19 05:43 Dose: 650 mg Allopurinol (Zyloprim) 100 mg PO DAILY [facility] Last Admin: 03/29/19 07:36 Dose: 100 mg Aspirin (Halfprin) 81 mg PO DAILY [facility] Last Admin: 03/29/19 07:37 Dose: 81 mg Ceftazidime (Fortaz) 1 gm IVPUSH BID [facility] Last Admin: 03/29/19 07:33 Dose: 1 gm Clonidine HCl (Catapres) 0.2 mg PO BID [facility] Last Admin: 03/29/19 07:38 Dose: 0.2 mg Cyclobenzaprine HCl (Flexeril) 10 mg PO TID PRN PRN Reason: Pain Last Admin: 03/29/19 01:33 Dose: 10 mg Diphenhydramine HCl (Benadryl) 25 mg PO QID PRN PRN Reason: Allergies Docusate Sodium (Colace) 100 mg PO BID PRN PRN Reason: Constipation Last Admin: 03/25/19 23:50 Dose: 100 mg Enoxaparin Sodium (Lovenox) 30 mg SUBCUT DAILY@1600 [facility] Last Admin: 03/28/19 15:50 Dose: 30 mg Folic Acid (Folic Acid) 1 mg PO DAILY [facility] Last Admin: 03/29/19 07:37 Dose: 1 mg Hydralazine HCl (Apresoline) 50 mg PO TID [facility] Last Admin: 03/29/19 07:37 Dose: 50 mg Sodium Chloride (Normal Saline) 1,000 mls @ 70 mls/hr IV ASDIRECTED [facility] Last Admin: 03/29/19 05:39 Dose: 70 mls/hr Insulin Glargine (Lantus Solostar) 10 units SUBCUT BEDTIME [facility] Last Admin: 03/28/19 20:10 Dose: 10 units Lisinopril (Prinivil) 20 mg PO DAILY [facility] Last Admin: 03/29/19 07:37 Dose: 20 mg Lorazepam (Ativan) 0.5 mg PO Q6H PRN PRN Reason: Anxiety Last Admin: 03/26/19 15:11 Dose: 0.5 mg Magnesium Hydroxide (Milk Of Magnesia) 30 ml PO DAILY PRN PRN Reason: Constipation Magnesium Oxide (Magnesium Oxide) 250 mg PO DAILY [facility] Last Admin: 03/29/19 07:37 Dose: 250 mg Metoprolol Tartrate (Lopressor) 100 mg PO BID [facility] Last Admin: 03/29/19 07:38 Dose: 100 mg Ondansetron HCl (Zofran) 4 mg IV Q4H PRN PRN Reason: Nausea/Vomiting Polyethylene Glycol (Miralax) 17 gm PO DAILY [facility] Last Admin: 03/29/19 07:33 Dose: 17 gm Simvastatin (Zocor) 40 mg PO DAILY [facility] Last Admin: 03/29/19 07:38 Dose: 40 mg Sodium Chloride (Saline Flush) 10 ml FLUSH ASDIRECTED PRN PRN Reason: Keep Vein Open - Exam General: Alert, Oriented, Cooperative, No Acute Distress HEENT: Mucous Membr. Moist/[place] Neck: Supple Lungs: Clear to Auscultation, Normal Respiratory Effort Cardiovascular: Regular Rate, Regular Rhythm GI/Abdominal Exam: Normal Bowel Sounds, Soft, Non-Tender Back Exam: Normal Inspection, Full Range of Motion Extremities: Normal Inspection, Normal Range of Motion, Non-Tender, No Pedal Edema, Normal Capillary Refill Peripheral Pulses: 2+: Radial (L), Posterior Tibial (L), Posterior Tibial (R) Skin: Warm, Dry, Intact Neurological: No New Focal Deficit Psy/Mental Status: Alert, Normal Affect, Normal Mood - Problem List Review Problem List Initiated/Reviewed/Updated: Yes - Assessment Assessment:: UTI, multiple drug resistance Multiple Left Sided Rib Fractures Type II DM Hypertension Generalized weakness - Plan Plan:: Will continue with IV ceftazidime. Did consult with Dr. Shane (urologist) who recommends 5 day treatment given most recent culture. Did discuss likelihood of colonization, but given patient is symptomatic with multiple falls and worsening weakness, will treat. Patient has also been more confused, worse in evenings, but this is likely patient's baseline. WBC improved from 11.3 to 9.2. Sodium remains at 131. Hemoglobin stable at 10.6. Did recently have positive fecal occult. Continue pain meds as needed for pain. Will add Flexeril as needed as well. Patient very restless at times, setting bed alarm off frequently and very anxious, especially when is not present. Will add PO Ativan. Continue current antihypertensives. BP has been slightly elevated. Will continue to monitor. Blood sugars have been well controlled. Plan is for patient to discharge to [facility] after completion of IV antibiotics. Case management working on arrangements. Patient and agreeable with this plan. Anticipate discharge to [facility] Saturday. 1315 The patient was evaluated in the hospital room, the patient's white blood cell count is normal, he remains anemic which is stable for him at this point. The general chemistries are essentially negative see the results from today for complete details. The patient is currently receiving IV antibiotic for urinary tract infection as the recommendation from the urologist is 5 days of IV antibiotics. The patient is scheduled to go to the halfway on Saturday. The patient's blood pressure has improved over yesterday, the patient is receiving 3 separate types of blood pressure medications, his blood pressure will be monitored closely of his blood pressures to low his blood pressure medicine be held and continuously reassessed. The patient will have repeat labs in the morning and again will continue his IV antibiotics as directed by the urologist. 03/29/2019 0800 the pt has had a good day yesterday, will continue current tx plan and will plan to DC in the am. the Pts B/p was elevated (syst) this am, will continue his current medications. will continue pain meds as needed as well as other medications
[2019-03-29] MEDS: LORazepam 0.5 MG Tab PO PRN (13:23)
[2019-03-29] MEDS: Enoxaparin 30 MG/0.3 ML Syringe SUBCUT SCH (16:40)
[2019-03-29] MEDS: Insulin Glargine,Human Rec. Analog 100 Units/ML 3 ML Pen SUBCUT SCH (20:43)
[2019-03-30] MEDS: cefTAZidime 1 GM Vial IVPUSH SCH (08:08)
[2019-03-30 08:13] VITALS: BP 179/51
[2019-03-30] MEDS: Folic Acid 1 MG Tab PO SCH (08:15)
[2019-03-30] MEDS: Lisinopril 20 MG Tab PO SCH (08:15)
[2019-03-30] MEDS: Polyethylene Glycol 3350 Powder 17 GM Packet PO SCH (08:15)
[2019-03-30] MEDS: Allopurinol 100 MG Tab PO SCH (08:15)
[2019-03-30] MEDS: Aspirin 81 MG Tab.EC PO SCH (08:15)
[2019-03-30] MEDS: Metoprolol Tartrate 50 MG Tab PO SCH (08:16)
[2019-03-30] MEDS: hydrALAZINE 25 MG Tab PO SCH (08:16)
[2019-03-30] MEDS: Simvastatin 20 MG Tab PO SCH (08:16)
[2019-03-30] MEDS: cloNIDine 0.1 MG Tab PO SCH (08:16)
[2019-03-30 08:17] VITALS: PULSE 77
--- NOTE | 2019-03-30 09:24 | PCM.DCSUM1 ---
Discharge Summary - Hospital Course Free Text/Narrative:: Patient presented to clinic for admission to hospital due to UTI. Had been in ER on the weekend and seen by Solo Norris due to weakness, feeling clammy. Was noted to have UTI but culture report noted on admit today was positive for Klebsiella and Pseudomonas, sensitive to Fortaz. Was admitted for IV antibiotics. Diagnosis: Stroke: No Modified [place] Scale: No Symptoms at All Modified [place] Scale Score: 0 - Discharge Data Discharge Date: 03/30/19 Discharge Disposition: DC/Tfer to SNF 03 Condition: Fair - Discharge Diagnosis/Problem(s) (1) Chronic urinary tract infection SNOMED Code(s): 771493287 ICD Code: N39.0 - URINARY TRACT INFECTION, SITE NOT SPECIFIED Status: Acute Priority: High - Patient Summary/Data Complications: none Hospital Course: Patient admitted for UTI, culture positive for Klebsiella and Pseudomonas. Sensitive to Fortaz. Dr. Shane was consulted in this regard, does not may be colonized with this. As had been more weak as of late, falling more often, felt should be treated with IV antibiotics for 5 days. Patient more confused in evenings, relates is his baseline. Has been afebrile. Completed course of antibiotics. Due to weakness, confusion, plans arranged for longterm placement to [facility]. Will continue with oral antibiotics. - Patient Instructions Diet: Diabetic Diet Activity: As Tolerated - Discharge Plan *PRESCRIPTION DRUG MONITORING PROGRAM REVIEWED*: No *COPY OF PRESCRIPTION DRUG MONITORING REPORT IN PATIENT PABLITO: No Prescriptions/Med Rec: RX: cefTAZidime Pentahydrate [Fortaz] 1 gm IVPUSH BID 5 Days #10 vial RX: Cyclobenzaprine [Flexeril] 10 mg PO TID PRN #30 tablet PRN Reason: Pain RX: Docusate Sodium [Colace] 100 mg PO BID PRN #60 cap PRN Reason: Constipation LORazepam [Ativan] 0.5 mg PO Q8H PRN #30 tablet PRN Reason: Anxiety Home Medications: Home Meds RX: Acetaminophen [Tylenol Extra Strength] 500 mg PO Q6HR PRN 11/24/13 [History] RX: Cholecalciferol (Vitamin D3) [Vitamin D3] 2,000 unit PO DAILY 11/24/13 [ History] RX: Docusate Sodium [Colace] 100 mg PO DAILY PRN 11/24/13 [History] RX: Folic Acid 1 mg PO DAILY 11/24/13 [History] RX: Lovastatin 40 mg PO DAILY 11/24/13 [History] RX: Magnesium 250 mg PO DAILY 11/24/13 [History] RX: Magnesium Hydroxide [Milk of Magnesia] 30 ml PO DAILY PRN 11/24/13 [History] RX: Metoprolol Tartrate 100 mg PO BID 11/24/13 [History] RX: Polyethylene Glycol 3350 [MiraLAX] 17 gm PO DAILY 11/24/13 [History] RX: Vitamin E 400 unit PO DAILY 11/24/13 [History] RX: diphenhydrAMINE [Benadryl] 25 mg PO QID PRN 11/24/13 [History] RX: hydrALAZINE HCl [Hydralazine HCl] 50 mg PO TID 11/24/13 [History] RX: Aspirin [Halfprin] 81 mg PO DAILY 09/13/16 [History] RX: Multivitamin [Multivitamins] 1 tab PO DAILY 10/19/16 [History] RX: cloNIDine [Catapres] 0.2 mg PO BID 10/19/16 [History] RX: Allopurinol [Zyloprim] 100 mg PO DAILY 03/18/19 [History] RX: Insulin Glarg,Human.Rec.Analog [Lantus] 10 unit SUBCUT DAILY@1930 03/18/19 [ History] RX: Lisinopril [Prinivil] 20 mg PO DAILY #30 tablet 03/20/19 [Rx] RX: Timolol Maleate 1 drop EYEBOTH DAILY 03/26/19 [History] LORazepam [Ativan] 0.5 mg PO Q8H PRN #30 tablet 03/30/19 [Rx] RX: Cyclobenzaprine [Flexeril] 10 mg PO TID PRN #30 tablet 03/30/19 [Rx] RX: Docusate Sodium [Colace] 100 mg PO BID PRN #60 cap 03/30/19 [Rx] RX: cefTAZidime Pentahydrate [Fortaz] 1 gm IVPUSH BID 5 Days #10 vial 03/30/19 [ Rx] - Discharge Summary/Plan Comment DC Time >30 min.: Yes Discharge Summary/Plan Comment: discharge to [facility]. Will continue with Fortax BID for 5 more days. Ativan as needed. Miralax daily due to constipation Time with patient and niece 15 minutes Time for orders/transfer 15 minutes time for documentation 10 minutes - General Info Date of Service: 03/30/19 Admission Dx/Problem (Free Text: UTI Weakness Multiple Rib Fractures Functional Status: Reports: Pain Controlled, Tolerating Diet, Ambulating - Review of Systems General: Reports: Weakness, Fatigue. Denies: Fever HEENT: Reports: No Symptoms Pulmonary: Denies: Shortness of Breath, Cough Cardiovascular: Denies: Chest Pain, Lightheadedness Gastrointestinal: Denies: Abdominal Pain, Nausea, Vomiting Genitourinary: Reports: No Symptoms Musculoskeletal: Reports: Back Pain (recent rib fractures) Skin: Reports: No Symptoms Neurological: Reports: Confusion - Patient Data Vitals - Most Recent: Last Vital Signs Temp 98.7 F 03/30/19 08:00 Pulse 77 03/30/19 08:16 Resp 20 03/30/19 08:00 BP 179/51 H 03/30/19 08:16 Pulse Ox 95 03/30/19 08:00 Weight - Most Recent: 216 lb 6.4 oz I&O - Last 24 hours: Intake & Output 03/29/19 03/30/19 03/30/19 22:59 06:59 14:59 Intake Total 987 Output Total 1100 2600 Balance -113 -2600 Lab Results - Last 24 hrs: Laboratory Results - last 24 hr 03/29/19 03/29/19 03/29/19 Range/Units 11:45 16:36 20:41 POC Glucose 173 H 133 H 153 H (75-105) mg/dl 03/30/19 Range/Units 08:07 POC Glucose 110 H (75-105) mg/dl Med Orders - Current: Current Medications Acetaminophen (Tylenol) 650 mg PO Q4H PRN PRN Reason: Pain (Mild 1-3)/fever Last Admin: 03/29/19 05:43 Dose: 650 mg Allopurinol (Zyloprim) 100 mg PO DAILY [facility] Last Admin: 03/30/19 08:15 Dose: 100 mg Aspirin (Halfprin) 81 mg PO DAILY [facility] Last Admin: 03/30/19 08:15 Dose: 81 mg Ceftazidime (Fortaz) 1 gm IVPUSH BID [facility] Last Admin: 03/30/19 08:08 Dose: 1 gm Clonidine HCl (Catapres) 0.2 mg PO BID [facility] Last Admin: 03/30/19 08:16 Dose: 0.2 mg Cyclobenzaprine HCl (Flexeril) 10 mg PO TID PRN PRN Reason: Pain Last Admin: 03/29/19 01:33 Dose: 10 mg Diphenhydramine HCl (Benadryl) 25 mg PO QID PRN PRN Reason: Allergies Docusate Sodium (Colace) 100 mg PO BID PRN PRN Reason: Constipation Last Admin: 03/25/19 23:50 Dose: 100 mg Enoxaparin Sodium (Lovenox) 30 mg SUBCUT DAILY@1600 [facility] Last Admin: 03/29/19 16:40 Dose: 30 mg Folic Acid (Folic Acid) 1 mg PO DAILY [facility] Last Admin: 03/30/19 08:15 Dose: 1 mg Hydralazine HCl (Apresoline) 50 mg PO TID [facility] Last Admin: 03/30/19 08:16 Dose: 50 mg Sodium Chloride (Normal Saline) 1,000 mls @ 70 mls/hr IV ASDIRECTED [facility] Last Admin: 03/29/19 19:45 Dose: 70 mls/hr Insulin Glargine (Lantus Solostar) 10 units SUBCUT BEDTIME [facility] Last Admin: 03/29/19 20:43 Dose: 10 units Lisinopril (Prinivil) 20 mg PO DAILY [facility] Last Admin: 03/30/19 08:15 Dose: 20 mg Lorazepam (Ativan) 0.5 mg PO Q6H PRN PRN Reason: Anxiety Last Admin: 03/29/19 13:23 Dose: 0.5 mg Magnesium Hydroxide (Milk Of Magnesia) 30 ml PO DAILY PRN PRN Reason: Constipation Magnesium Oxide (Magnesium Oxide) 250 mg PO DAILY [facility] Last Admin: 03/30/19 08:15 Dose: 250 mg Metoprolol Tartrate (Lopressor) 100 mg PO BID [facility] Last Admin: 03/30/19 08:16 Dose: 100 mg Ondansetron HCl (Zofran) 4 mg IV Q4H PRN PRN Reason: Nausea/Vomiting Polyethylene Glycol (Miralax) 17 gm PO DAILY [facility] Last Admin: 03/30/19 08:15 Dose: 17 gm Simvastatin (Zocor) 40 mg PO DAILY [facility] Last Admin: 03/30/19 08:16 Dose: 40 mg Sodium Chloride (Saline Flush) 10 ml FLUSH ASDIRECTED PRN PRN Reason: Keep Vein Open - Exam General: Reports: Alert, Oriented (person and place) HEENT: Reports: Mucous Membr. Moist/[place] Neck: Reports: Supple Lungs: Reports: Clear to Auscultation, Normal Respiratory Effort Cardiovascular: Reports: Regular Rate, Regular Rhythm GI/Abdominal Exam: Normal Bowel Sounds, Soft, Non-Tender Extremities: Normal Inspection Skin: Reports: Warm, Dry Neurological: Reports: No New Focal Deficit
== END 2019-03-30 09:27 | DRG 699 ==
LOC: UNDOADMIN 14:31 → CC.MS 14:31
PROVIDERS: ADMIT Physician Assistant Medical; ATTEND Family Medicine
DX: T83.511A Infection and inflammatory reaction due to indwelling urethral catheter, initial encounter (principal); S22.42XA Multiple fractures of ribs, left side, initial encounter for closed fracture; E87.1 Hypo-osmolality and hyponatremia; N39.0 Urinary tract infection, site not specified; R53.1 Weakness; B96.1 Klebsiella pneumoniae [K. pneumoniae] as the cause of diseases classified elsewhere; B96.5 Pseudomonas (aeruginosa) (mallei) (pseudomallei) as the cause of diseases classified elsewhere; K59.00 Constipation, unspecified; N40.0 Benign prostatic hyperplasia without lower urinary tract symptoms; E11.9 Type 2 diabetes mellitus without complications; I10 Essential (primary) hypertension; Z96.659 Presence of unspecified artificial knee joint; Z16.35 Resistance to multiple antimicrobial drugs; W19.XXXA Unspecified fall, initial encounter; F41.9 Anxiety disorder, unspecified; Z79.82 Long term (current) use of aspirin; Z79.4 Long term (current) use of insulin; Z88.5 Allergy status to narcotic agent; Z88.1 Allergy status to other antibiotic agents; Z88.8 Allergy status to other drugs, medicaments and biological substances; Z98.49 Cataract extraction status, unspecified eye; Z95.0 Presence of cardiac pacemaker
CPT/HCPCS: 36415; 80048; 82962; 85025; 86140; A9270-GY; J0713; J1650; J1815-GY; J7030